=== PATIENT | male | born 1950 | race Caucasian/White ===

== ENCOUNTER 2025-03-04 14:48 | Outpatient (AMB) | payer MEDICARE, SELFPAY ==
[2025-03-04 15:33] VITALS: BP 162/58; PULSE 106; TEMP 36.4; O2SAT 97; BMI 33.6
--- NOTE | 2025-03-04 15:33 | MHC.OFFWIV ---
Intake Vital Signs 03/04/25 15:33 Height 5 ft 4 in Weight 196 lb BMI 33.6 BP 162/58 H Blood Pressure Location Rt brachial Position Sitting Pulse 106 H Pulse Source Pulse Oximeter Temp 97.5 F Temp Source Oral Pulse Oximetry (%) 97 Oxygen Delivery Method Room Air Intake Visit Reasons: EP-rt leg rash itchy & swollen Intake Note: presents with ulcerated lesion on right posterior calf, painful with weight bearing, weeping. applying neosporin anti-itch cream, vaseline and neosporin OTC Allergies Sulfa (Sulfonamide Antibiotics) (SULFA (SULFONAMIDE ANTIBIOTICS)) Allergy (Unknown, Verified 03/04/25 15:38) RED RASH codeine (CODEINE) Adverse Reaction (Intermediate, Verified 03/04/25 15:38) VERY TIRED AND EXTREME MUSCLE WEAKNESS codeine Allergy (Unknown, Uncoded 03/04/25 15:38) Rash Do you need a note to return to daycare/school/sports/work: No HPI HPI Comments History of Present Illness Details History - The patient is a 74-year-old male presenting with a rash on the back of the leg and an open wound with signs of infection. - Rash: Developed a few days ago, potentially related to wearing new socks without washing. - Open wound: Occurred two weeks ago from trauma while getting out of bed, now showing signs of infection with erythema and exudate. - Current management: Caregiver applies antibiotic cream, but infection persists, necessitating oral antibiotics and prescription cream. - He denies fever or chills. - He has been putting OTC cream on the area with little relief. Physical Exam General: Cooperative, healthy appearing, comfortable, no acute distress and well developed Orientation: Patient oriented x3 Neck: Normal visual inspection and Yes full ROM Respiratory: Normal respiratory effort and able to speak in complete sentences. Clear to auscultation bilaterally. No w/r/r noted. Cardiovascular: RRR, no m/r/g noted. Normal S1 and S2 Skin: Large circular open area, moist and erythematous on the posterior right lower leg. Erythema and swelling noted on the right lower leg. MSK: No calf tenderness noted. Strength is 5/5 on the LE. Ambulates with walker. Patient was informed and verbally consented to the use of an ambient scribe for clinic note documentation during this visit Review of Systems Const All systems reviewed & are unremarkable except as noted in HPI and below Physical Exam Vital Signs: Last Vital Signs Temp 97.5 F 03/04/25 15:33 Pulse 106 H 03/04/25 15:33 BP 162/58 H 03/04/25 15:33 Pulse Ox 97 03/04/25 15:33 Oxygen Delivery Method Room Air 03/04/25 15:33 BMI result Body Mass Index 33.6 Assessment & Plan Assessment & Plan (1) Wound of right lower extremity: Code(s): S81.801A - Unspecified open wound, right lower leg, initial encounter Qualifiers: Encounter type: initial encounter Qualified Code(s): S81.801A - Unspecified open wound, right lower leg, initial encounter Plan Most likely open wound with cellulitis Plan - Elevate the leg - Tylenol or motrin as needed for pain or fever - Initiate oral antibiotics and apply prescription antibiotic cream. - Ensure daily wound monitoring by caregiver and proper dressing to prevent further irritation. - Note given with instructions for the director of career resources. Coding Level of Care Code Est Pt Level 4 (85138) Diagnoses Wound of right lower extremity, initial encounter S81.801A Encounter type: initial encounter
== END 2025-03-04 16:51 | disposition home or self-care (01) ==
PROVIDERS: PCP Internal Medicine; Visit Provider Physician Assistant Medical
DX: S81.801A Unspecified open wound, right lower leg, initial encounter (principal)

== ENCOUNTER → 2025-03-04 14:48 | Outpatient (BNVA) | payer MEDICARE, SELFPAY | PROVIDERS: PCP Internal Medicine; Visit Provider Physician Assistant Medical | DX: S81.801A Unspecified open wound, right lower leg, initial encounter (principal); R21 Rash and other nonspecific skin eruption; X58.XXXA Exposure to other specified factors, initial encounter; Y93.9 Activity, unspecified; Y92.9 Unspecified place or not applicable; Y99.9 Unspecified external cause status | CPT/HCPCS: 99212 ==

== ENCOUNTER 2025-03-11 13:02 | Outpatient (AMB) | payer MEDICARE, SELFPAY ==
--- NOTE | 2025-03-11 13:02 | MHC.PC.OV ---
Vital Signs 03/11/25 13:07 Height 5 ft 4 in Weight 140 lb BMI 24.0 BP 138/40 L Blood Pressure Location Rt brachial Position Sitting Respiration 17 Pulse 95 Pulse Source Pulse Oximeter Temp 97.7 F Temp Source Temporal Artery Scan Pulse Oximetry (%) 95 Oxygen Delivery Method Room Air Intake Visit Reasons: Leg wound Cancer Registry Manager Required: No Accompanied by: Brother Allergies Sulfa (Sulfonamide Antibiotics) (SULFA (SULFONAMIDE ANTIBIOTICS)) Allergy (Unknown, Verified 03/11/25 13:02) RED RASH codeine (CODEINE) Adverse Reaction (Intermediate, Verified 03/11/25 13:02) VERY TIRED AND EXTREME MUSCLE WEAKNESS codeine Allergy (Unknown, Uncoded 03/04/25 15:38) Rash Tobacco use date assessed: 03/11/25 HPI Leg wound HPI Details came to the office with brother. buised the skin by scraping on the bed stand. Was seen in the walk in and prescribed antibiotics. PFSH Social History Patient Tobacco Use Status: Never used Tobacco e-Cigarette/Vaping Use: Never Used Questionnaire AUDIT C Alcohol Use Questionnaire (AUDIT-C) 1. How often do you have a drink containing alcohol?: Monthly or less 2. How many drinks containing alcohol do you have on a typical day when you are drinking?: 1 or 2 Total Score: 1 Physical exam (Primary Care) Vital Signs: Last Vital Signs Temp 97.7 F 03/11/25 13:07 Pulse 95 03/11/25 13:07 Resp 17 03/11/25 13:07 BP 138/40 L 03/11/25 13:07 Pulse Ox 95 03/11/25 13:07 Oxygen Delivery Method Room Air 03/11/25 13:07 BMI result Body Mass Index 24.0 Tobacco/Smoking Status: Tobacco use Status Tobacco use date assessed 03/11/25 03/11/25 13:11 Patient Tobacco Use Status Never used Tobacco 03/11/25 13:11 e-Cigarette/Vaping Use Never Used 03/11/25 13:11 Const General: cooperative and healthy appearing Nutritional Appearance: well nourished Orientation/consciousness: patient oriented x3 Limitations: no limitations HENMT Head: Yes normal to inspection Eyes General: appearance normal, both eyes and all related structures Neck Neck: Yes normal visual inspection Chest Chest palpation & inspection: normal palpation of entire chest wall Resp Effort & Inspection: normal respiratory effort Skin Other: Right leg; Tendocalcaneus area; open 4 cm superficial wound, pink granulation tissue. No surrounding erythema. Neuro General: patient oriented x3 Coding Level of Care Code New Pt Level 4 (23527) Complex EM visit Add On G2211 Diagnoses Wound of right leg S81.801A Assessment & Plan Assessment & Plan (1) Wound of right leg: Code(s): S81.801A - Unspecified open wound, right lower leg, initial encounter Plan: Continue and complete antibiotic course. Keep leg dry. Wound is healing well. Follow up appt in one month Orders: [facility]errals [facility] Referral S81.801A - Unspecified open wound, right lower leg, initial encounter
[2025-03-11 13:07] VITALS: BP 138/40; PULSE 95; RESP 17; TEMP 36.5; O2SAT 95; BMI 24.0
== END 2025-03-11 13:33 | disposition home or self-care (01) ==
LOC: HO.HMCHD 13:02
PROVIDERS: PCP Internal Medicine; Visit Provider Internal Medicine
DX: S81.801A Unspecified open wound, right lower leg, initial encounter (principal)

== ENCOUNTER → 2025-03-11 13:02 | Outpatient (BNVA) | payer MEDICARE, SELFPAY | PROVIDERS: PCP Internal Medicine; Visit Provider Internal Medicine | DX: S81.801A Unspecified open wound, right lower leg, initial encounter (principal); X58.XXXA Exposure to other specified factors, initial encounter; Y93.9 Activity, unspecified; Y92.9 Unspecified place or not applicable; Y99.9 Unspecified external cause status | CPT/HCPCS: 99202 ==

== ENCOUNTER 2025-04-01 10:49 | Outpatient (REF) | payer MEDICARE, SELFPAY ==
[2025-04-01 10:56] VITALS: BP 194/81; PULSE 83; RESP 16; O2SAT 94; BMI 24.9
== END 2025-04-01 10:50 | disposition home or self-care (01) ==
LOC: HO.MS 10:49
PROVIDERS: PCP Internal Medicine; Visit Provider Ophthalmology
PROC: (CPT 66821; principal; 2025-04-01 13:30)
DX: H26.491 Other secondary cataract, right eye (principal)
CPT/HCPCS: 66821

== ENCOUNTER 2025-04-11 08:39 | Outpatient (AMB) | payer MEDICARE, SELFPAY ==
--- NOTE | 2025-04-11 08:42 | MHC.PC.OV ---
Vital Signs 04/11/25 08:47 04/11/25 08:49 Height 5 ft 4 in Weight 194 lb BP 188/90 H 188/78 H Blood Pressure Location Lt brachial Rt brachial Position Sitting Sitting Respiration 22 H Pulse 86 Pulse Source Pulse Oximeter Temp 97.4 F Temp Source Temporal Artery Scan Pulse Oximetry (%) 96 Oxygen Delivery Method Room Air Intake Visit Reasons: 1 month wound f/u Policyholder Information Clerk Required: No Accompanied by: Self / Same As Patient Allergies Sulfa (Sulfonamide Antibiotics) (SULFA (SULFONAMIDE ANTIBIOTICS)) Allergy (Unknown, Verified 04/11/25 08:42) RED RASH codeine (CODEINE) Adverse Reaction (Intermediate, Verified 04/11/25 08:42) VERY TIRED AND EXTREME MUSCLE WEAKNESS codeine Allergy (Unknown, Uncoded 03/04/25 15:38) Rash Tobacco use date assessed: 03/11/25 HPI HPI Comments History of Present Illness Details The patient is a 74-year-old male presenting with concerns about his leg wound and management of essential hypertension. The leg wound, located on the backside of his leg, was reportedly caused by a scrape on the bed frame. The patient notes that the wound has been improving significantly, without signs of drainage, although there was a prior concern about circulation in the legs which could potentially impair healing. The wound has been managed with topical ointment and dressing changes every other day, though the patient did not receive a planned visit from a wound care nurse. Given his history of uncooperative behavior concerning his health, his brother David has stepped in to help manage his care and ensure he receives appropriate medical attention. Additionally, the patient reports a history of spontaneous and significant weight fluctuation, with weights recorded as 196 pounds two months ago, 145 pounds a month ago, and back up to 196 pounds ten days ago. The fluctuations are notable, and today, he weighs 194 pounds. The patient has essential hypertension, with a documented reading of 190/78, which was previously noted to be as high as 192/84 during a recent ophthalmology appointment. Previous concerns from his foot care nurse regarding circulation in his legs were noted, as well as a risk of skin breakdown if the patient injures himself. The patient has a history of vision problems and recently underwent laser surgery which has reportedly improved his vision significantly. 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 He also exhibits shortness of breath described as occurring particularly upon waking and sometimes after walking short distances. Although he denies a history of smoking and has limited alcohol intake, there are indications of diminished activity and health maintenance protocols needing attention, particularly concerning weight management and dietary sodium intake. 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 - Potential peripheral vascular disease (pending diagnostic evaluation) Surgical History: - Laser eye surgery Family History: - History of sinus issues (exact family members not specified) Social: - Lives alone in a congregate house in [place] - Brother is involved in care supervision - Walks with the aid of a walker - Diet includes meals delivered by a meal delivery company; frequent consumptions of banana bread and hamburgers; requires adjustment for better health management [facility] Medical History (Updated 04/11/25 @ 09:23 by Holland Leavitt MD) Hypertension Debility, unspecified Wound of lower extremity Healthcare maintenance Social History Patient Tobacco Use Status: Never used Tobacco e-Cigarette/Vaping Use: Never Used Questionnaire AUDIT C Alcohol Use Questionnaire (AUDIT-C) 1. How often do you have a drink containing alcohol?: Never 3. How often do you have six or more drinks on one occasion?: Never Total Score: 0 Review of Systems Const Details: - Constitutional: Denies chest pain and reports shortness of breath on exertion. - Cardiovascular: Reports essential hypertension; denies history of smoking. - Respiratory: Denies history of smoking; reports occasional shortness of breath upon waking and exertion. - Vision: Reports improvement in vision post-laser surgery. - Gastrointestinal: Reports regular bowel movements. - Integumentary: Reports existing leg wound with improved healing; denies new drainage. - Musculoskeletal: Reports unstable gait requiring walker; history of spine curvature. All systems reviewed & are unremarkable except as noted in HPI and below Physical exam (Primary Care) Vital Signs: Last Vital Signs Temp 97.4 F 04/11/25 08:49 Pulse 86 04/11/25 08:49 Resp 22 H 04/11/25 08:49 BP 188/78 H 04/11/25 08:49 Pulse Ox 96 04/11/25 08:49 Oxygen Delivery Method Room Air 04/11/25 08:49 Tobacco/Smoking Status: Tobacco use Status Tobacco use date assessed 03/11/25 04/11/25 08:45 Patient Tobacco Use Status Never used Tobacco 04/11/25 08:45 e-Cigarette/Vaping Use Never Used 04/11/25 08:45 Const Other: General: +Alert and oriented, Well nourished, No acute distress. Eye: Pupils are equal, round and reactive to light, Intact accommodation, Extraocular movements are intact, Normal conjunctiva, Vision improved after recent laser surgery. HENT: Normocephalic, Atraumatic, Tympanic membranes are clear, Normal hearing, Oral mucosa is moist, No pharyngeal erythema, Ear canals patent. Respiratory: Lungs CTA bilaterally, Wheezing noted, Respirations are non-labored. Cardiovascular: Regular rate, Regular rhythm, S1 auscultated, S2 auscultated, No murmur, Pulses difficult to appreciate, Normal peripheral perfusion, No edema. Gastrointestinal: Soft, Non-tender, Non-distended, Normal bowel sounds, No organomegaly, Abdomen slightly distended. Musculoskeletal: Normal range of motion, Normal strength, No tenderness, No swelling, No deformity, Normal gait, Uses a walker due to instability. Integumentary: Warm, Dry, [place], Intact, Wound on the back of the leg, draining, skin very dry. Neurologic: Alert, Oriented, Normal sensory, Normal motor function, No focal defects, Cranial Nerves II-XII are grossly intact, Normal deep tendon reflexes. Psychiatric: Cooperative, Appropriate mood & affect, Normal judgment. Coding Level of Care Code Est Pt Level 4 (31448) Complex EM visit Add On G2211 Diagnoses Healthcare maintenance Z00.00 Wound of lower extremity S81.809A Debility, unspecified R53.81 Hypertension, unspecified type I10 Hypertension type: unspecified Assessment & Plan Assessment & Plan (1) Healthcare maintenance: Code(s): Z00.00 - Encounter for general adult medical examination without abnormal findings Category: Medical (2) Wound of lower extremity: Comment: - Continue current wound care with topical ointment and dressings. - Refer to rn wound care to evaluate circulation and healing. - Evaluate for any signs of infection or compromised healing during follow-ups - Doppler ordered to evaluate for blood flow - On exam wound appears clean, without any drainiage. Code(s): S81.809A - Unspecified open wound, unspecified lower leg, initial encounter Category: Medical (3) Debility, unspecified: Comment: - PT & OT Ordered to improve mobility and reduce dependency on a walker. - Continue orthopedic consultations as needed in the future Code(s): R53.81 - Other malaise Category: Medical (4) Hypertension: Comment: - Initiate Amlodipine 2.5 mg once daily to manage hypertension effectively. - Advise diet modification to reduce sodium intake, aiming for less than 1.5 grams per day. - Monitor blood pressure daily using home BP cuff and document readings for evaluation at the next visit. Code(s): I10 - Essential (primary) hypertension Category: Medical Qualifiers: Hypertension type: unspecified Qualified Code(s): I10 - Essential (primary) hypertension Plan During this visit, we focused on managing the patient's essential hypertension, monitoring weight fluctuation, and addressing concerns regarding the leg wound. I discussed initiating Amlodipine 2.5 mg daily to manage the elevated blood pressure, emphasizing the importance of monitoring blood pressure readings at home. Reducing dietary sodium intake to less than 1.5 grams per day was recommended to aid in blood pressure control. I stressed the need for appropriate wound care and follow-up with a rn wound care, given his history of difficulty in healing. We agreed on a duplex scan to evaluate blood flow in the lower extremities, considering the potential circulation issues. Additionally, I recommended physical therapy to assess and improve gait stability. Follow-up was scheduled for wound care and hypertension management, with a review of blood pressure logs. The potential risk of progression to a more dependent care setting if self-care habits do not improve was discussed. Orders: Orders Hemoglobin A1c Today Z00.00 - Encounter for general adult medical examination without abnormal findings HIV Ab/Ag Today Z00.00 - Encounter for general adult medical examination without abnormal findings PT Evaluation and Treatment Today R53.81 - Other malaise OT Evaluation and Treatment Today R53.81 - Other malaise Complete Blood Count Auto Diff Today Z00.00 - Encounter for general adult medical examination without abnormal findings Comprehensive Met. Panel Today Z00.00 - Encounter for general adult medical examination without abnormal findings Hepatitis A,B,C Profile Today Z00.00 - Encounter for general adult medical examination without abnormal findings Lipid Panel Today Z00.00 - Encounter for general adult medical examination without abnormal findings TSH reflex Free T4 Today Z00.00 - Encounter for general adult medical examination without abnormal findings Syphilis Screen Today Z00.00 - Encounter for general adult medical examination without abnormal findings Vitamin D 25-OH Total Today Z00.00 - Encounter for general adult medical examination without abnormal findings US duplex arterial venous comp Today S81.809A - Unspecified open wound, unspecified lower leg, initial encounter Referrals Wound Care Referral S81.806H - Unspecified open wound, unspecified lower leg, initial encounter Medications: New amlodipine 2.5 mg PO DAILY 30 tabs 0RF 30 days Patient Instructions: - Start taking Amlodipine 2.5 mg once daily. - Buy a blood pressure cuff and check your blood pressure each morning; write down the numbers. - Cut down salt; aim for less than 1.5 grams a day. - Continue caring for your leg wound; use ointment and change dressings as discussed. - Let the wound breathe whenever possible. - Get more active and try small exercises like walking down the hallway. - Avoid foods with high sodium; try to eat healthier meals. - Follow up as planned for your leg wound and blood pressure.
[2025-04-11 08:47] VITALS: BP 188/90
[2025-04-11 08:49] VITALS: BP 188/78; PULSE 86; RESP 22; TEMP 36.3; O2SAT 96
== END 2025-04-11 09:28 | disposition home or self-care (01) ==
LOC: HO.HMCHD 08:39
PROVIDERS: PCP Student in an Organized Health Care Education/Training Program; Visit Provider Student in an Organized Health Care Education/Training Program
DX: Z00.00 Encounter for general adult medical examination without abnormal findings (principal); S81.809A Unspecified open wound, unspecified lower leg, initial encounter; R53.81 Other malaise; I10 Essential (primary) hypertension

== ENCOUNTER 2025-04-11 08:39 | Outpatient (REF) | payer MEDICARE, SELFPAY ==
[2025-04-11 09:55] LABS: MANUAL DIFF FLAG NO
[2025-04-11 10:44] LABS: Hematocrit 44.8 % (42.0-52.0); Hemoglobin 14.3 g/dl (14.0-18.0); Imm Gran Abs Auto 0.13 X10*3/uL (0.00-0.03); Imm Gran Pct Auto 1.7 % (0.0-0.4); Lymphocytes Absolute Auto 2.0 X10*3/uL (1.2-4.9); Mean Corpuscular HGB Conc 31.9 g/dl (31.0-36.0); Mean Corpuscular Hemoglobin 28.8 pg (27.0-33.0); Mean Corpuscular Volume 90.3 fL (80.0-98.0); NRBC Abs Auto 0.000 X10*3/uL (0.0-0.012); NRBC Pct Auto 0.0 /100WBC (0.0-0.2); Platelet Count 200 X10*3/uL (160-400); Red Blood Count 4.96 X10*6/uL (4.60-5.80); White Blood Count 7.8 X10*3/uL (4.8-10.8)
[2025-04-11 11:15] LABS: Alanine Aminotransferase 34 U/L (0-40); Albumin Level 4.5 g/dL (3.5-5.0); Alkaline Phosphatase 74 U/L (39-117); Anion Gap 12 (12-20); Aspartate Amino Transferase 41 U/L (5-37); Blood Urea Nitrogen 16 mg/dL (9-16); Calcium 9.6 mg/dL (8.4-10.2); Carbon Dioxide 25 mmol/L (22-29); Chloride 103 mmol/L (96-108); Cholesterol 254 mg/dL (<200); Estimated Glomerular Filt Rate > 60; HDL Cholesterol 45 mg/dL (>40); Potassium 4.1 mmol/L (3.3-5.1); Sodium 136 mmol/L (135-145); Total Protein 8.1 g/dL (6.5-8.0); Triglycerides 230 mg/dL (<150)
[2025-04-11 11:22] LABS: HBS Num1 0.00 mIU/mL (0-7.99); HBc Num1 0.05 S/CO (0.00-0.79); HBsAGNum1 0.34 S/CO (0.00-0.99); HIV Num 1 0.11 S/CO (0.00-0.99); Hepatitis A Antibody IgM 0.17 Index (0-0.79); Hepatitis B Surface Antigen Negative (Negative); ~HepC Num1 0.12 S/CO (0.00-0.79); ~Hepatitis A Antibody IgM Nonreactive (Nonreactive); ~Hepatitis B Surface Antibody NONREACTIVE (Nonreactive); ~Hepatitis C Antibody Nonreactive (Nonreactive)
[2025-04-11 11:24] LABS: Syphilis Screen Nonreactive (Nonreactive)
[2025-04-11 11:57] LABS: Free T4 (Free Thyroxine) 0.49 ng/dL (0.71-1.85)
== END 2025-04-11 08:40 | disposition home or self-care (01) ==
LOC: HO.LAB 08:39
PROVIDERS: PCP Internal Medicine; Visit Provider Student in an Organized Health Care Education/Training Program
DX: Z00.00 Encounter for general adult medical examination without abnormal findings (principal); S81.809A Unspecified open wound, unspecified lower leg, initial encounter; R53.81 Other malaise; I10 Essential (primary) hypertension
CPT/HCPCS: 36415; 80053; 80061; 82306; 83036; 84439; 84443; 85025; 86704; 86706; 86709; 86780; 86803; 87340; 87389; 99212

== ENCOUNTER 2025-04-23 08:58 | Outpatient (RCR) | payer MEDICARE, SELFPAY | END 2025-04-23 16:29 | disposition home or self-care (01) | LOC: HO.WCC 08:58 | PROVIDERS: PCP Internal Medicine; Visit Provider Surgery Surgical Oncology | DX: I87.2 Venous insufficiency (chronic) (peripheral) (principal); I73.9 Peripheral vascular disease, unspecified; I10 Essential (primary) hypertension | CPT/HCPCS: 99203 ==

== ENCOUNTER 2025-05-03 09:14 | Outpatient (AMB) | payer MEDICARE, SELFPAY ==
--- NOTE | 2025-05-03 09:01 | A.OFFPC_ITS ---
Vital Signs 05/03/25 09:23 Height 5 ft 4 in Weight 195 lb BMI 33.5 BP 185/77 H Blood Pressure Location Lt brachial Position Sitting Respiration 18 Pulse 82 Pulse Source Pulse Oximeter Temp 98.8 F Temp Source Temporal Artery Scan Pulse Oximetry (%) 92 Oxygen Delivery Method Room Air Intake Visit Reasons: Annual Cook Jelly Required: No Accompanied by: Brother Allergies Sulfa (Sulfonamide Antibiotics) (SULFA (SULFONAMIDE ANTIBIOTICS)) Allergy (Unknown, Verified 05/03/25 09:01) RED RASH codeine (CODEINE) Adverse Reaction (Intermediate, Verified 05/03/25 09:01) VERY TIRED AND EXTREME MUSCLE WEAKNESS codeine Allergy (Unknown, Uncoded 03/04/25 15:38) Rash Medication List - Last Reconciled 05/03/25 by Holland Leavitt MD amlodipine 10 mg PO DAILY atorvastatin (Lipitor) 40 mg PO BEDTIME 90 days cholecalciferol (vitamin D3) 1,250 mcg PO QWEEK 12 weeks ibuprofen (Advil) 200 mg PO BID PRN levothyroxine (Synthroid) 50 mcg PO DAILY multivitamin 1 tab PO DAILY mupirocin 2% 1 appl topical TID 10 days Tobacco use date assessed: 03/11/25 HPI HPI Comments History of Present Illness Details The patient is a 74-year-old male presenting for management of hypertension and review of recent test results. The patient has a history of essential hypertension, which remains uncontrolled. His blood pressure readings have been spotty, with a recent reading of 180 mmHg, indicating poor control despite attempts at monitoring and medication adherence. The patient has been noncompliant with his antihypertensive medication regimens, which has contributed to persistently elevated readings. In addition to hypertension, the patient presents with elevated cholesterol levels, suggestive of hyperlipidemia. This was identified in previous test results, prompting consideration for initiation of cholesterol-lowering medication. The patient also has hypothyroidism with significantly low thyroid function tests noted recently. Noncompliance with prescribed thyroid medication has been contributing to symptoms such as fatigue. Moreover, the patient is identified as having a vitamin D deficiency, likely due to limited sunlight exposure as he prefers to remain indoors watching television. He is reported to be borderline diabetic per recent evaluations, and while medications were not immediately initiated, dietary modifications were recommended to address his glucose levels in conjunction with potential benefits for hyperlipidemia management. Medical History: - Essential Hypertension - Hyperlipidemia - Hypothyroidism - Vitamin D Deficiency - Borderline Diabetes Mellitus Surgical History: - No surgical history mentioned. Medications: - Amlodipine 2.5 mg, for hypertension (n ote: a switch to a higher dose is planned) - Thyroid medications, for hypothyroidis m (specific medication name/dose not provided) Family History: - History of thyroid dysfunction in the family (patient's mother had an overreactive thyroid) Diagnostic Results: - Labs: Low thyroid function test levels , elevated cholesterol levels, low vitamin D levels - Tests and Diagnostics: Recent blood pr essure readings showing uncontrolled hypertension (180 mmHg) Social: - Prefers minimal physical activity, oft en remains indoors watching television - Has limited exposure to sunlight - Nutritional intake includes meals deli jayme with diabetic consideration [facility] Medical History (Updated 05/03/25 @ 09:54 by Holland Leavitt MD) Diabetes Vitamin D deficiency Hyperlipidemia Hypothyroidism Hand weakness Gait disturbance Shoulder weakness Lower extremity weakness Hypertension Debility, unspecified Wound of lower extremity Healthcare maintenance Social History Patient Tobacco Use Status: Never used Tobacco e-Cigarette/Vaping Use: Never Used Review of Systems Const Details: - Cardiovascular: Reports elevated blood pressure - Endocrine: Reports feeling tired, attributed to hypothyroidism. Denies smoking history. - Musculoskeletal: Denies physical activity All systems reviewed & are unremarkable except as reviewed in HPI and above Physical exam (Primary Care) Vital Signs: Last Vital Signs Temp 98.8 F 05/03/25 09:23 Pulse 82 05/03/25 09:23 Resp 18 05/03/25 09:23 BP 185/77 H 05/03/25 09:23 Pulse Ox 92 05/03/25 09:23 Oxygen Delivery Method Room Air 05/03/25 09:23 BMI result Body Mass Index 33.5 Tobacco/Smoking Status: Tobacco use Status Tobacco use date assessed 03/11/25 05/03/25 09:02 Patient Tobacco Use Status Never used Tobacco 05/03/25 09:02 e-Cigarette/Vaping Use Never Used 05/03/25 09:02 Const Other: General: +Alert and oriented, Well nourished, No acute distress. Eye: Pupils are equal, round and reactive to light, Intact accommodation, Extraocular movements are intact, Normal conjunctiva, Vision unchanged. HENT: Normocephalic, Atraumatic, Tympanic membranes are clear, Normal hearing, Oral mucosa is moist, No pharyngeal erythema, Ear canals patent. Respiratory: Lungs CTA bilaterally, No wheeze, Respirations are non-labored. Cardiovascular: Regular rate, Regular rhythm, S1 auscultated, S2 auscultated, No murmur, Good pulses equal in all extremities, Normal peripheral perfusion, No edema. Gastrointestinal: Soft, Non-tender, Non-distended, Normal bowel sounds, No organomegaly. Musculoskeletal: Normal range of motion, Normal strength, No tenderness, No swelling, No deformity, Normal gait. Integumentary: Warm, Dry, [place], Intact, Healing wounds noted on the leg, advised to let them dry out completely. Neurologic: Alert, Oriented, Normal sensory, Normal motor function, No focal defects, Cranial Nerves II-XII are grossly intact, Normal deep tendon reflexes. Psychiatric: Cooperative, Appropriate mood & affect, Normal judgment, Capacity to make decisions intact. Coding Level of Care Code Est Pt Level 4 (07728) Complex EM visit Add On G2211 Diagnoses Hypothyroidism, unspecified type E03.9 Hypothyroidism type: unspecified Hypertension, unspecified type I10 Hypertension type: unspecified Hyperlipidemia, unspecified hyperlipidemia type E78.5 Hyperlipidemia type: unspecified Debility, unspecified R53.81 Wound of right lower extremity, subsequent encounter S81.801D Encounter type: subsequent encounter Laterality: right Vitamin D deficiency E55.9 Type 2 diabetes mellitus without complication, without long-term current use of insulin E11.9 Diabetes mellitus type: type 2 Diabetes mellitus local intermodal truck driver insulin use: without local intermodal truck driver use Diabetes mellitus complication status: without complication Assessment & Plan Assessment & Plan (1) Hypothyroidism: Comment: - Patient adherence to thyroid medication is vital, unclear if acting taking Levothyroxine - A referral to an pest controller assistant is to be sent due to significantly low thyroid function and noncompliance with medication. Code(s): E03.9 - Hypothyroidism, unspecified Category: Medical Qualifiers: Hypothyroidism type: unspecified Qualified Code(s): E03.9 - Hypothyroidism, unspecified (2) Hypertension: Comment: - The plan is to increase the amlodipine dose from 2.5 mg to 10 mg daily for better blood pressure control. - It was emphasized that the patient must adhere to his antihypertensive treatment regimen to achieve optimal outcomes. - Follow up in 1 month to re-evaluate blood pressures and consider addition of SHALA/ARB Code(s): I10 - Essential (primary) hypertension Category: Medical Qualifiers: Hypertension type: unspecified Qualified Code(s): I10 - Essential (primary) hypertension (3) Hyperlipidemia: Comment: - Initiation of cholesterol-lowering medication is planned. (Atorvastatin 40mg Daily) - Dietary modification is advised to help control cholesterol levels, leveraging meals designed for diabetic needs. Code(s): E78.5 - Hyperlipidemia, unspecified Category: Medical Qualifiers: Hyperlipidemia type: unspecified Qualified Code(s): E78.5 - Hyperlipidemia, unspecified (4) Debility, unspecified: Comment: - PT & OT Ordered to improve mobility and reduce dependency on a walker. He has had some improvement today and able to walk without an however is interested in home PT. Requested information for a home PT services they would like and we will send a referral to the same - Continue orthopedic consultations as needed in the future Code(s): R53.81 - Other malaise Category: Medical (5) Wound of lower extremity: Comment: - Continue current wound care with topical ointment and dressings. - Evaluate for any signs of infection or compromised healing during follow-ups - On exam wound appears clean, without any drainiage and scabbing over wound Code(s): S81.809A - Unspecified open wound, unspecified lower leg, initial encounter Category: Medical Qualifiers: Encounter type: subsequent encounter Laterality: right Qualified Code(s): S81.801D - Unspecified open wound, right lower leg, subsequent encounter (6) Vitamin D deficiency: Comment: - Initiate vitamin D supplementation: one capsule weekly for 12 weeks Code(s): E55.9 - Vitamin D deficiency, unspecified Category: Medical (7) Diabetes: Comment: - Advise dietary interventions to manage glucose levels given A1c level of 6.4 - If he has continued increase will Code(s): E11.9 - Type 2 diabetes mellitus without complications Category: Medical Qualifiers: Diabetes mellitus type: type 2 Diabetes mellitus local intermodal truck driver insulin use: without local intermodal truck driver use Diabetes mellitus complication status: without complication Qualified Code(s): E11.9 - Type 2 diabetes mellitus without complications Plan: Health maintenance: - Encourage healthy lifestyle changes, including dietary modifications for diabetic management and cholesterol control - Plan for a colonoscopy, pending blood pressure control, given the absence from records and need for cancer screening Patient was informed and verbally consented to the use of an ambient scribe for clinic note documentation during this visit. Plan I discussed with the patient and his family the planned increase in amlodipine dosage to better manage his hypertension. I explained that adherence to his medication regimen is critical for optimizing blood pressure control. We reviewed the need to start cholesterol-lowering therapy due to elevated chato sterol levels and emphasized dietary modifications as an initial step for managing borderline diabetes and hyperlipidemia. I mentioned the importance of vitamin D supplementation due to deficiency and supported adherence to thyroid medication for hypothyroidism control. We also talked about the plan for a referral to an pest controller assistant due to his low thyroid function. Additionally, we projected a future colonoscopy, contingent on achieving controlled blood pressure, as part of cancer screening. Follow-up is planned via telehealth in a month to monitor blood pressure, aiming for consistency without having him travel. Orders: Referrals Open Access Screening Colonoscopy Referral Z12.11 - Encounter for screening for malignant neoplasm of colon Endocrinology Referral E03.9 - Hypothyroidism, unspecified Medications: New amlodipine 10 mg PO DAILY 30 tabs 0RF atorvastatin (Lipitor) 40 mg PO BEDTIME 90 tabs 3RF 90 days cholecalciferol (vitamin D3) 1,250 mcg PO QWEEK 12 caps 0RF 12 weeks Discontinued doxycycline hyclate Discontinued Reason: Doctor's Order 100 mg PO BID 10 days 20 tabs 0RF amlodipine Discontinued Reason: Doctor's Order 2.5 mg PO DAILY 30 days 30 tabs 0RF Patient Instructions: - Take the new prescribed dose of amlodipine daily as directed - Follow the dietary recommendations for managing cholesterol and glucose levels - Ensure you take vitamin D supplements once a week for 12 weeks - Stick to the prescribed thyroid medication daily as instructed - Prepare for dietary adjustments to manage glucose levels - Call us to schedule a telehealth follow-up in a month regarding your blood pressure - Watch for any lightheadedness after starting new medications and report if it occurs
[2025-05-03 09:23] VITALS: BP 185/77; PULSE 82; RESP 18; TEMP 37.1; O2SAT 92; BMI 33.5
== END 2025-05-03 09:56 | disposition home or self-care (01) ==
LOC: HO.HMCHD 09:15
PROVIDERS: PCP Internal Medicine; Visit Provider Student in an Organized Health Care Education/Training Program
DX: E03.9 Hypothyroidism, unspecified (principal); I10 Essential (primary) hypertension; E78.5 Hyperlipidemia, unspecified; R53.81 Other malaise; S81.801D Unspecified open wound, right lower leg, subsequent encounter; E55.9 Vitamin D deficiency, unspecified; E11.9 Type 2 diabetes mellitus without complications

== ENCOUNTER → 2025-05-03 09:14 | Outpatient (BNVA) | payer MEDICARE, SELFPAY | PROVIDERS: PCP Internal Medicine; Visit Provider Student in an Organized Health Care Education/Training Program | DX: E03.9 Hypothyroidism, unspecified (principal); I10 Essential (primary) hypertension; E78.5 Hyperlipidemia, unspecified; R53.81 Other malaise; S81.801D Unspecified open wound, right lower leg, subsequent encounter; E55.9 Vitamin D deficiency, unspecified; E11.9 Type 2 diabetes mellitus without complications; Z79.899 Other long term (current) drug therapy | CPT/HCPCS: 99212 ==

== ENCOUNTER 2025-05-30 08:26 | Outpatient (AMB) | payer MEDICARE, SELFPAY ==
--- OUTSIDE RECORDS SUMMARY | 2025-05-24 05:30 | XMS_ITS ---
Author Organization [facility] Address [address] [place] [address] Care Team Providers Care Photography Spotter Name Role Phone DagmarHolland whitmore Primary Care Provider Lilia Schilling Unavailable [phone] Rajendra Lal Unavailable [phone] Allergies Allergen (clinical drug ingredient) Drug/Non Drug [...] Negative Encounters Encounter Location Date Provider Diagnosis [facility] [address] [place] [address] 05/24/2025 Rajendra Lal Plan Of Treatment Next Appt Details Provider Name:Lilia arzola, 10/24/2025 10:00:00 AM, [address] [place], [address], Progress Notes * Lauren POWER:[birth year] (74 yo M)Acc No.[id number]:05/24/2025 Progress Notes Patient: Clay SHERIFF Provider: Swathi Lal DPM :1950 A ge:74 Y S ex:Male Date:05/24/2025 Address:[address] [place] [address], [place], [facility] Pcp:Holland Leavitt Subjective: * Chief Complaints: * 1 . [...] enies. C ardiovascular: Pacemaker d enies. M MAINTENANCE DATA ANALYST d enies. W PW d enies. C [...] Swathi Lal DPM Date: Generated for Amanda Min/Deepa on: 08:44 AM EDT
--- NOTE | 2025-05-30 07:41 | MHC.PC.OV ---
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 The patient has a background of essential hypertension, hypothyroidism, vitamin D deficiency, and hypercholesterolemia. Despite having medications prescribed, there is a significant issue with adherence, as evidenced by full pill bottles and medications not being taken out from weekly pill holders. Historically, the patient's essential hypertension and hypercholesterolemia have been monitored, but recently there have been disruptions. An episode where the patient's blood pressure recorded was 187/74 mmHg post-ambulation during physical therapy suggests suboptimal control. Despite this, there is no record of the patient experiencing any acute symptoms associated with elevated blood pressure. Hypothyroidism remains untreated as the patient has not been taking the prescribed thyroid hormone replacement. The concern of thyroid imbalance persists, with implications for metabolic control, energy levels, and overall health. The patient's vitamin D deficiency, confirmed by past tests, has not been addressed due to noncompliance with prescribed supplements. Noncompliance is a longstanding issue, exacerbated by limited mobility and motivation to follow medical advice. The patient's diet is reportedly inadequate despite meals being provided by services like Meals on Wheels, and there has been no initiative to improve dietary intake independently. Medical History: - Essential Hypertension - Hypothyroidism - Vitamin D deficiency - Hypercholesterolemia - Noncompliance with medication regimen Medications: - Amlodipine 10 mg daily for hypertension - Atorvastatin for hypercholesterolemia - Thyroid hormone replacement (specific medication and dose not mentioned) for hypothyroidism - Vitamin D supplements for deficiency Family History: - Family history of noncompliance with a need for medical care - Recent loss of a spouse to ovarian cancer Social History: - Lives in an apartment complex with provided access to transportation - Limited mobility; recent relocation within the same building noted - Received Meals on Wheels, with unspecified compliance to dietary recommendations - Limited interaction with family, support mainly provided by a brother and arproe-[id number] [facility] Medical History (Updated 05/30/25 @ 09:05 by Holland Leavitt MD) Diabetes Vitamin D deficiency Hyperlipidemia Hypothyroidism Hand weakness Gait disturbance Shoulder weakness Lower extremity weakness Hypertension Debility, unspecified Wound of lower extremity Healthcare maintenance Social History Housing: House Patient Tobacco Use Status: Never used Tobacco e-Cigarette/Vaping Use: Never Used service: No Current occupational status: disabled Review of Systems Const Details: - Cardiovascular: Reports issues with blood pressure regulation - Endocrine: Reports noncompliance with thyroid medication - Musculoskeletal: Denies recent increase in physical activity - Dietary: Reports inadequate dietary intake despite meal service All systems reviewed & are unremarkable except as reviewed in HPI and above Physical exam (Primary Care) Vital Signs: Last Vital Signs Temp 97.3 F 05/30/25 08:30 Pulse 76 05/30/25 08:30 Resp 18 05/30/25 08:30 BP 146/56 H 05/30/25 08:30 Pulse Ox 95 05/30/25 08:30 Oxygen Delivery Method Room Air 05/30/25 08:30 Tobacco/Smoking Status: Tobacco use Status Tobacco use date assessed 03/11/25 05/30/25 07:42 Patient Tobacco Use Status Never used Tobacco 05/30/25 07:42 e-Cigarette/Vaping Use Never Used 05/30/25 07:42 Const Other: General: +Alert and oriented, Well nourished, No acute distress. Eye: Pupils are equal, round and reactive to light, Intact accommodation, Extraocular movements are intact, Normal conjunctiva, Vision unchanged. HENT: Normocephalic, Atraumatic, Tympanic membranes are clear, Normal hearing, Oral mucosa is moist, No pharyngeal erythema, Ear canals patent. Respiratory: Lungs CTA bilaterally, No wheeze, Respirations are non-labored. Cardiovascular: Regular rate, Regular rhythm, S1 auscultated, S2 auscultated, No murmur, Good pulses equal in all extremities, Normal peripheral perfusion, No edema. Gastrointestinal: Soft, Non-tender, Non-distended, Normal bowel sounds, No organomegaly. Musculoskeletal: Normal range of motion, Normal strength, No tenderness, No swelling, No deformity, Normal gait. Integumentary: Warm, Dry, [place], Intact. Neurologic: Alert, Oriented, Normal sensory, Normal motor function, No focal defects, Cranial Nerves II-XII are grossly intact, Normal deep tendon reflexes. Psychiatric: Cooperative, Appropriate mood & affect, Normal judgment. Coding Level of Care Code Est Pt Level 4 (16084) Complex EM visit Add On G2211 Diagnoses Hypertension, unspecified type I10 Hypertension type: unspecified Hyperlipidemia, unspecified hyperlipidemia type E78.5 Hyperlipidemia type: unspecified Hypothyroidism, unspecified type E03.9 Hypothyroidism type: unspecified Vitamin D deficiency E55.9 Type 2 diabetes mellitus without complication, without long-term current use of insulin E11.9 Diabetes mellitus type: type 2 Diabetes mellitus oil heaterman insulin use: without skilled nursing use Diabetes mellitus complication status: without complication Assessment & Plan Assessment & Plan (1) Hypertension: Comment: - Noncompliance with antihypertensive medication is a significant concern. - Encouragement to adhere to the prescribed Amlodipine regimen discussed. Code(s): I10 - Essential (primary) hypertension Category: Medical Qualifiers: Hypertension type: unspecified Qualified Code(s): I10 - Essential (primary) hypertension (2) Hyperlipidemia: Comment: - Importance of taking Atorvastatin highlighted to minimize cardiovascular risk factors. - Discussion included necessity of lifestyle modifications, specifically diet. Code(s): E78.5 - Hyperlipidemia, unspecified Category: Medical Qualifiers: Hyperlipidemia type: unspecified Qualified Code(s): E78.5 - Hyperlipidemia, unspecified (3) Hypothyroidism: Comment: - Significant issues due to lack of medication compliance. - Discussion on the potential consideration of thyroid hormone injection if oral compliance remains inadequate. - Emphasis on the importance of thyroid management to prevent further complications & importance of follow up with Endo. Code(s): E03.9 - Hypothyroidism, unspecified Category: Medical Qualifiers: Hypothyroidism type: unspecified Qualified Code(s): E03.9 - Hypothyroidism, unspecified (4) Vitamin D deficiency: Comment: - Initiate vitamin D supplementation: one capsule weekly for 12 weeks - Emphasized necessity to consistently take prescribed supplements to address deficiency. Code(s): E55.9 - Vitamin D deficiency, unspecified Category: Medical (5) Diabetes: Comment: - Advise dietary interventions to manage glucose levels given A1c level of 6.4 - If he has continued increase will Code(s): E11.9 - Type 2 diabetes mellitus without complications Category: Medical Qualifiers: Diabetes mellitus type: type 2 Diabetes mellitus oil heaterman insulin use: without oil heaterman use Diabetes mellitus complication status: without complication Qualified Code(s): E11.9 - Type 2 diabetes mellitus without complications Plan: Health Maintenance: - Discussion on dietary interventions and adherence to meal plans. - Reinforcement of the significance of medication compliance in risk management for chronic diseases like cardiovascular disease. Patient was informed and verbally consented to the use of an ambient scribe for clinic note documentation during this visit. Plan During today?s session with the patient, I thoroughly discussed the implications of noncompliance on his chronic conditions, particularly hypertension and hypothyroidism. I stressed the importance of taking medications as prescribed to mitigate the risk of complications such as cardiovascular events and metabolic imbalances due to thyroid dysfunction. Various strategies to improve adherence were deliberated upon, including involving family for daily reminders and aid. I underscored the role of lifestyle changes, especially dietary, in controlling cholesterol levels. Despite previous challenges, I recommended adhering to the upcoming appointments with specialists to ensure continued monitoring and possible adjustments in management approaches. Patient Instructions: - Take all medications as prescribed daily. - Make arrangements to attend all upcoming specialist appointments. - Engage in daily light physical activity as tolerated. - Continue receiving Meals on Wheels and attempt to follow nutrition guidance provided. - Monitor blood pressure regularly at home, if possible. - Have a family member assist with reminder systems for medication intake. - Follow-up appointment scheduled in 3 months. Return sooner if experiencing any new symptoms or health changes.
[2025-05-30 08:30] VITALS: BP 146/56; PULSE 76; RESP 18; TEMP 36.3; O2SAT 95
--- OUTSIDE RECORDS SUMMARY | 2025-05-30 08:45 | XMS_ITS | Patient Health Record ---
[facility] Organization [facility] Address [address] [facility] [place] [address] Care Team Providers Care Clinical Operations Leader Name Role Phone Holland Leavitt Primary Care Provider Lilia Schilling Unavailable [phone] Rajendra Lal Unavailable [phone] Allergies Allergen (clinical drug ingredient) Drug/Non Drug Allergy documented on EMR Reaction Allergy Type Onset Date Status codeine Codeine Unknown Drug Allergy Active Reason For Referral No Information Medications Medication SIG (Take, Route, Frequency, Duration) Notes Start Date End Date Status Levothyroxine Sodium 50 MCG TAKE 1 TABLET BY MOUTH EVERY DAY Oral; Duration: 30 Days Active prednisoLONE Acetate 1 % INSTILL 1 DROP IN SURGICAL EYE 4 TIMES A DAY X4 DAYS. BRING UNOPENED TO HOSPTIAL ON DAY OF PROCEDURE Ophthalmic; Duration: 20 Days Active Doxycycline Hyclate 100 MG 1 capsule Ora lly Once a day Active Advil 200 MG 1 tablet with food o r milk as needed Orally Three times a day Active amLODIPine Besylate 2.5 MG Oral; Duration: 30 Days Active Extra Depth Orthopedic Shoes (1 Pair) with Customized Heat Molded Multidensity Innersoles (3 Pair) Dx: NIDDM/Polyneuropathy (E11.42), Hammertoe Foot Deformity (M20.41,M20.42), Preulcerative Skin Lesion(s) (L85.1); Duration: 365 days 04/22/2025 Active Mupirocin 2 % External; Duration: 10 Days Active Doxycycline Hyclate 100 MG Oral; Duration: 10 Days Active Immunizations Vaccine Route Administration Date Status Comme nts Influenza Unknown 04/22/2025 Refused Social History Tobacco Use: Social History Observation [...] ast year? No Points 0 Interpretation Negative Problems Problem Type SNOMED Code ICD Code Onset Dates Problem Status W/U Status Risk Notes Problem Acquired hammer toe of right foot (7823204202138293) Other hammer toe(s) (acquired), right foot (M20.41) Active confirmed Problem Acquired hammer toe of left foot (7271593256923711) Other hammer toe(s) (acquired), left foot (M20.42) Active confirmed Problem Bilateral atherosclerosis of arteries of lower limbs (disorder) (74424011517422598 ) Atherosclerosis of artery of both lower extremities (I70.203) Active confirmed Q7(A), Q8(2B), Q9(1B,2 C) Vital Signs Blood pressure diastolic 81 mm Hg 04/22/2025 Height 5ft 4in in 04/22/2025 Blood pressure systolic 191 mm Hg 04/22/2025 Weight 194 lbs 04/22/2025 BMI 33.3 kg/m2 04/22/2025 Procedures Procedure Date Ordered Date Performed Result Body Sit e 09967-YIEXWON NAIL, 1-5 04/22/2025 N/A 00848-GJRI SKIN LESIONS, OVER 4 04/22/2025 N/A [id number]-NXNTPSHS DYSTROPHIC NAILS ANY # 04/22/2025 N/A Encounters Encounter Location Date Provider Diagnosis [facility] [address] [address] 04/22/2025 Lilia Mcduffie Other hammer toe(s) (acquired), right foot M20.41 ; Other hammer toe(s) (acquired), left foot M20.42 ; Atherosclerosis of artery of both lower extremities I70.203 ; Tinea unguium B35.1 ; Pain in right toe(s) M79.674 and Pain in left toe(s) M79.675 [facility] [address] [address] 04/22/2025 Lilia Mcduffie Assessments Encounter Date Diagnosis (ICD Code) Assessment Notes Treatment Notes Treatment Clinical Notes Section Notes 04/22/2025 Other hammer toe(s) (acquired), right foot (ICD-10 - M20.41) Patient Educated with: DIABETIC FOOT CARE INSTRUCTIONS. pdf (DIABETIC FOOT CARE INSTRUCTIONS. pdf) 04/22/2025 Other hammer toe(s) (acquired), left foot (ICD-10 - M20.42) 04/22/2025 Atherosclerosis of artery of both lower extremities (ICD-10 - I70.203) Q7(A), Q8(2B), Q9(1B,2C) 04/22/2025 Tinea unguium (ICD-10 - B35.1) 04/22/2025 Pain in right toe(s) (ICD-10 - M79.674) 04/22/2025 Pain in left toe(s) (ICD-10 - M79.675) Plan Of Treatment Pending Test Test Name Order Date [id number] NAIL, 1-5 04/22/2025 64879-OARW SKIN LESIONS, OVER 4 04/22/20 25 [id number]-UNTVJMDI DYSTROPHIC NAILS ANY # Next Appt Details Provider Name:Lilia Bhatti ness, 10/24/2025 10:00:00 AM, [address], [place], [address], Insurance Providers Payer Name Payer Address Payer Phone Subscriber Number Group Number Insured Name Patient Relationship to Insured Coverage Start Date Coverage End Date [employer] [place] [employer] [facility] [address] [place] [address] [phone] [id number] Clay Jennings Self - patient is the insured 2 Medical (General) History Medical History History ICD Code Anxiety Cataracts Measles Mumps Chicken pox
== END 2025-05-30 09:01 | disposition home or self-care (01) ==
LOC: HO.HMCHD 08:26
PROVIDERS: PCP Student in an Organized Health Care Education/Training Program; Visit Provider Student in an Organized Health Care Education/Training Program
DX: I10 Essential (primary) hypertension (principal); E78.5 Hyperlipidemia, unspecified; E03.9 Hypothyroidism, unspecified; E55.9 Vitamin D deficiency, unspecified; E11.9 Type 2 diabetes mellitus without complications

== ENCOUNTER → 2025-05-30 08:26 | Outpatient (BNVA) | payer MEDICARE, SELFPAY | PROVIDERS: PCP Student in an Organized Health Care Education/Training Program; Visit Provider Student in an Organized Health Care Education/Training Program | DX: I10 Essential (primary) hypertension (principal); E78.5 Hyperlipidemia, unspecified; E03.9 Hypothyroidism, unspecified; E55.9 Vitamin D deficiency, unspecified; E11.9 Type 2 diabetes mellitus without complications; Z91.148 Patient's other noncompliance with medication regimen for other reason | CPT/HCPCS: 99212 ==

== ENCOUNTER 2025-05-31 10:36 | Emergency (ER) | payer MEDICARE, SELFPAY ==
--- OUTSIDE RECORDS SUMMARY | 2025-05-24 05:30 | XMS_ITS ---
Author Organization [facility] Address [address] [place] [address] Care Team Providers Care Ultrasound Technologist Name Role Phone DagmarHolland whitmore Primary Care Provider Lilia Schilling Unavailable [phone] Rajendra Lal Unavailable [phone] Allergies Allergen (clinical drug ingredient) Drug/Non Drug [...] Negative Encounters Encounter Location Date Provider Diagnosis [facility] [address] [place] [address] 05/24/2025 Rajendra Lal Plan Of Treatment Next Appt Details Provider Name:Lilia arzola, 10/24/2025 10:00:00 AM, [address] [place], [address], Progress Notes * Lauren POWER:[birth year] (74 yo M)Acc No.[id number]:05/24/2025 Progress Notes Patient: Clay SHERIFF Provider: Swathi Lal DPM :1950 A ge:74 Y S ex:Male Date:05/24/2025 Address:[address] [place] [address], [place], [id number] Pcp:Holland Leavitt Subjective: * Chief Complaints: * [...] enies. C ardiovascular: Pacemaker d enies. M OUTSIDE SALES ACCOUNT MANAGER d enies. W PW d enies. [...] DPM Date: Generated for Amanda Min/Deepa on: 01:38 PM EDT
--- NOTE | ~2025-05-31 | XR_ITS ---
EXAMINATION: XR CHEST CLINICAL INFORMATION: HTN COMPARISON: February 26, 2013 is not available on PACS. TECHNIQUE: PA and lateral views FINDINGS: Poor inspiration. No consolidation, pleural effusion or pneumothorax. Cardiomediastinal silhouette demonstrates a prominent cardiac apex. There is a moderate to large volume hiatal hernia. There is a shaped curvature of the thoracolumbar spine. Osteopenia versus osteoporosis. Multilevel spondylosis. Degenerative changes in the acromioclavicular joints. XR/XR chest 2V IMPRESSION: No acute airspace disease. Concerning hypertensive cardiomyopathy in the correct clinical settings. Moderate to large volume hiatal hernia. Scoliosis and spondylosis, thoracolumbar spine. Electronically signed by: Maximino Ferraro MD 05/31/2025 11:31 AM EDT
--- NOTE | 2025-05-31 10:44 | ED_ITS ---
HPI - General Adult General Chief complaint: General Medical Stated complaint: HIGH BP PER [facility] STAFF Time Seen by Provider: 05/31/25 10:44 Source: patient and EMS Mode of arrival: EMS Limitations: no limitations History of Present Illness ED Provider: Dilia Gonzalez PA-C HPI narrative: Patient is a 74 year old assigned male at with a history of HLD, HTN, and DM presenting to the emergency department today with a high blood pressure reading. Patient states that his assisted living facility staff checked his blood pressure and it was high so they recommended he come to the ER for evaluation . Patient states that he has no complaints. No headache, blurry vision, loss of vision, chest pain, or shortness of breath. Patient denies any other complaints at this time. Related Data Home Medications ?Medication ?Instructions ?Recorded ?Confirmed multivitamin 1 tab PO DAILY 03/04/2504/15 ibuprofen 200 mg tablet (Advil) 200 mg PO BID PRN 02/1305/03/25 Previous Rx's ?Medication ?Instructions ?Recorded mupirocin 2 % topical ointment 1 appl topical TID 10 d ays #22 03/04/25 grams levothyroxine 50 mcg tablet 50 mcg PO DAILY #30 tabs 0 04/11/25 (Synthroid) amlodipine 10 mg tablet 10 mg PO DAILY #30 tabs 04/15 05/09 atorvastatin 40 mg tablet (Lipitor) 40 mg PO BEDTIME 9 0 days #90 tabs 05/03/25 cholecalciferol (vitamin D3) 1,250 1,250 mcg PO QWEEK 12 weeks #12 05/03/25 mcg (50,000 unit) capsule caps Allergies Allergy/AdvReac Type Severity Reaction Status Date / Time Sulfa (Sulfonamide Allergy Unknown RED RASH Verified 05/31/25 10:50 Antibiotics) (SULFA (SULFONAMIDE ANTIBIOTICS)) codeine (CODEINE) AdvReac Intermediate VERY TIRED Verified 05/31/25 10:50 AND EXTREME MUSCLE WEAKNESS codeine Allergy Unknown Rash Uncoded 05/31/25 10:50 Review of Systems 2 Constitutional: Constitutional: Reports as per HPI Eyes: Eyes: Reports as per HPI ENT: Reports as per HPI Cardiovascular: Cardiovascular: Reports as per HPI Respiratory: Respiratory: Reports as per HPI Gastrointestinal: Gastrointestinal: Reports as per HPI Genitourinary: Genitourinary: Reports as per HPI Musculoskeletal: Musculoskeletal: Reports as per HPI Integumentary/Breasts: Skin/Breast: Reports as per HPI Neurologic: Reports as per HPI Psychiatric: Psychiatric: Reports as per HPI Endocrine: Endocrine: Reports as per HPI Hematologic/Lymphatic: Hematologic/Lymphatic: Reports as per HPI Allergic/Immunologic: Allergic/Immunologic: Reports as per HPI [facility] Past Medical History Attestation statement: The following information was validated with the patient. Source: old records reviewed and nursing notes reviewed Medical History Diabetes Vitamin D deficiency Hyperlipidemia Hypothyroidism Hand weakness Gait disturbance Shoulder weakness Lower extremity weakness Hypertension Debility, unspecified Wound of lower extremity Healthcare maintenance Social History Social History Housing: House Patient Tobacco Use Status: Never used Tobacco e-Cigarette/Vaping Use: Never Used Advance Directives: Yes Advance Directives Information Provided: No Advance Directives on File: No Do you have a plan to hurt others: No Plan service: No Current occupational status: disabled Physical Exam ED Vital Signs: Vital Signs - 24 hr 05/31/25 10:47 05/31/25 12:19 05/31/25 12:43 Temperature 97.8 F 98 F 98 F Pulse Rate 93 75 75 Respiratory Rate 16 16 16 Blood Pressure 167/68 H 170/71 H 170/71 H Pulse Oximetry 94 99 99 Oxygen Delivery Method Room Air Room Air Room Air BMI result Body Mass Index 34.5 Const General: cooperative, no acute distress, alert and awake Nutritional Appearance: well nourished Orientation/consciousness: patient oriented x3 HENMT Head: Yes normal to inspection and Yes atraumatic Ears: hearing grossly normal bilaterally and external ears normal General nose exam: Normal external nose present, no nasal discharge noted and no epistaxis Face and sinus: Yes normal facial exam, No abrasion and No laceration Mouth: Normal oral and palatal mucosa present, no drooling and no muffled voice Eyes General: appearance normal, both eyes and all related structures Periorbital: periorbital findings normal Eyelids: Yes eyelids normal Conjunctivae: conjunctivae normal Pupils: Equal, round and reactive pupils present EOM: EOMs intact bilaterally Neck Neck: Yes normal visual inspection and Yes full ROM Resp Effort & Inspection: normal respiratory effort and able to speak in complete sentences Neuro General: patient oriented x3, moves all extremities and CN's II-XI intact bilaterally Cranial nerves: Yes Equal, round and reactive pupils present Cognition (Neuro): normal cognition Extrem General: Yes normal to inspection, Yes full ROM and Yes capillary refill normal Psych Appearance: grossly normal Mental Status: mental status grossly normal Affect: normal affect Attitude: cooperative Thought process: Normal thought process present Thought content: Normal thought content present Insight: Good insight present (Psych) Procedures Procedure Narrative Procedure Narrative: EMERGENCY ULTRASOUND INTERPRETATION-Limited Echocardiography [This study was ordered, performed, and interpreted by myself. The study reveals: Impression: NORMAL LV FUNCTION, NO RV DYSFUNCTION, NO PERICARDIAL EFFUSION] [Emergent Cardiac for Indication: Views Used: PLAX, PSSA, A4, SX, IVC Pericardial Effusion/Tamponade Findings: NONE RV Dilation (> LV diam in 4ch apical): NONE Global LV Fxn: NORMAL IVC Dilation and Resp Variation: NORMAL Performed by: MD Brendan Images were stored CPT:35120] Medical Decision Making Medical Decision Making MDM Narrative: Patient is a 74 year old assigned male at with a history of HLD, HTN, and DM presenting to the emergency department today with a high blood pressure reading. Patient's physical exam was as noted in the physical exam portion of this note and unremarkable. Patient's blood work was unremarkable. Patient's EKG showed a longer QT interval compared to his previous but his QT was not dangerously prolonged / concerning. Patient's chest x-ray showed possible cardiomyopathy with a hiatal hernia. Patient remained asymptomatic while in the department, no chest pain, no blurry vision, no double vision, no loss of vision, no headache, no shortness of breath. I explained my physical exam findings as well as all test results to the patient. I answered all questions asked by the patient. I stressed the importance of the patient taking his medication as directed (either prescribed or as the over the counter packaging recommends). I stressed the importance of the patient following up with his primary care provider. I stressed the importance of the patient returning to the emergency department immediately if his symptoms were to worsen or if he were to develop any dizziness, shortness of breath, difficulty breathing, chest pain, blurry vision, loss of vision, nausea, vomiting, abdominal pain, fever, chills, back pain, or any other complaints. Patient verbalized agreement and understanding with this treatment plan and discharge. Differential Diagnosis Differential Diagnoses: The differential diagnosis associated with the presentation includes Elevated blood pressure Asymptomatic HTN Admission/Observation Consideration of admission/observation: Escalation of care including admission/observation considered Patient would have been admitted to the hospital had his work up had any findings where hospital admission was appropriate and his clinical presentation warranted hospital admission. Lab Data [facility] Lab Attestation statement: I reviewed the patient's lab results. My interpretation of these results are in the [facility] Rationale portion of this note. 05/31/25 11:08 05/31/25 11:08 Labs: Lab Results 05/31/25 Range/Units 11:08 WBC 6.5 (4.8-10.8) X10*3/uL RBC 4.81 (4.60-5.80) X10*6/uL Hgb 13.9 L (14.0-18.0) g/dl Hct 42.3 (42.0-52.0) % MCV 87.9 (80.0-98.0) fL MCH 28.9 (27.0-33.0) pg MCHC 32.9 (31.0-36.0) g/dl RDW 13.4 (11.0-16.0) % Plt Count 201 (160-400) X10*3/uL MPV 10.1 (9.4-12.4) fL Immature Gran % (Auto) 0.8 H (0.0-0.4) % Neut % (Auto) 57.8 (45-73) % Lymph % (Auto) 27.5 (20-40) % [place] % (Auto) 10.5 (2-11) % Eos % (Auto) 2.2 (0-4) % Baso % (Auto) 1.2 (0-2) % Lymph # (Auto) 1.8 (1.2-4.9) X10*3/uL [place] # (Auto) 0.7 (0.1-1.2) X10*3/uL Eos # (Auto) 0.1 (0.0-0.4) X10*3/uL Baso # (Auto) 0.1 (0.0-0.2) X10*3/uL Abs Immat Gran (auto) 0.05 H (0.00-0.03) X10*3/uL Absolute Neuts (auto) 3.7 (2.0-8.3) x10*3/uL Absolute Nucleated RBC 0.000 (0.0-0.012) X10*3/uL Nucleated RBC % (auto) 0.0 (0.0-0.2) /100WBC Sodium 139 (135-145) mmol/L Potassium 3.8 (3.3-5.1) mmol/L Chloride 103 (96-108) mmol/L Carbon Dioxide 25 (22-29) mmol/L Anion Gap 15 (12-20) BUN 18 H (9-16) mg/dL Creatinine 0.77 (0.5-1.4) mg/dL Estim Creat Clear Calc 83.1 Estimated GFR > 60 Random Glucose 122 H (60-115) mg/dL Calcium 9.6 (8.4-10.2) mg/dL Total Bilirubin 0.5 (0.0-1.0) mg/dL AST 32 (5-37) U/L ALT 31 (0-40) U/L Alkaline Phosphatase 96 (39-117) U/L Troponin I High Sens 19.0 (<3.5-35.0) ng/L Total Protein 8.4 H (6.5-8.0) g/dL Albumin 4.6 (3.5-5.0) g/dL Independent Interpretation I performed an independent interpretation of an: EKG and Plain X-Ray Interpretation: My interpretation is in agreement with the radiologist's impression of this imaging study. L Reason for Exam: HTN EXAMINATION: XR CHEST CLINICAL INFORMATION: HTN COMPARISON: February 26, 2013 is not available on PACS. TECHNIQUE: PA and lateral views FINDINGS: Poor inspiration. No consolidation, pleural effusion or pneumothorax. Cardiomediastinal silhouette demonstrates a prominent cardiac apex. There is a moderate to large volume hiatal hernia. There is a shaped curvature of the thoracolumbar spine. Osteopenia versus osteoporosis. Multilevel spondylosis. Degenerative changes in the acromioclavicular joints. XR/XR chest 2V IMPRESSION: No acute airspace disease. Concerning hypertensive cardiomyopathy in the correct clinical settings. Moderate to large volume hiatal hernia. Scoliosis and spondylosis, thoracolumbar spine. Electronically signed by: Maximino Ferraro MD 05/31/2025 11:31 AM EDT RP Dictated By: Maximino Ramos MD Signed By: Electronically signed by Maximino Tinoco MD 05/31/25 1131 I independently interpreted this EKG and am in agreement with the below findings: Vent. Rate: 97 BPM Atrial Rate: 97 BPM P-R Int: 192 ms QRS Dur: 80 ms QT Int: 368 ms P-R-T Axes: 18 9 38 degrees QTcB Int: 467 ms Normal sinus rhythm Possible Left atrial enlargement Nonspecific T wave abnormality When compared with ECG of 21-Oct-2014 08:10, Vent. rate has increased by 38 bpm QT has lengthened DD/ 1059 Radiology Impression Discussion of test interpretation with radiology: I have reviewed the radiologist's reading. Independent Historian Clinical information obtained from an independent historian. History obtained from or confirmed by: EMS (EMS provided additional history and confirmed the history provided by the patient. ) Chronic Conditions Patient?s care impacted by: Hypertension Discharge Plan Discharge Clinical Impression: Elevated blood pressure reading Patient Disposition: Home, Self-Care Instructions: Hypertension (ED) Additional Instructions: Your work up today was unremarkable but it is important you follow up with your primary care provider for better hypertension (high blood pressure) management. IF you are prescribed home medications and/or you are taking over the counter medications at home - it is very important you continue to do so as prescribed / directed unless told otherwise. Follow up with your primary care provider. Return to the emergency department immediately if your symptoms worsen or if you develop any numbness, tingling, dizziness, shortness of breath, difficulty breathing, chest pain, blurry vision, loss of vision, nausea, vomiting, abdominal pain, fever, chills, back pain, or any other complaints. Please see the information below about our Patient Portal. If you are not yet enrolled in the [facility] Patient Portal, you will receive an enrollment email invitation following your visit to any [facility] setting. You may also self-enroll in the Patient Portal by visiting our website: [email or web address] The following information is required to access the Patient Portal: - Your [facility] Medical Record Number - Your personal home email address (must match what is in your electronic medical record, Registration staff can assist with this) - Name - Date of Capabilities of the Patient Portal: - Message some providers - View upcoming appointments - Access your health summary, medical history, and visit history - View current conditions and allergies - View procedure and lab results - View your medications, including guidelines, side effects, and precautions - Complete pre-appointment questionnaires requested by your provider - Ready summary reports of your office visits and procedures To access the Patient Portal Mobile Se, follow these directions: - Search iXpert in the Se Store or Vendormate Store - Download the Se - Search for [facility] - Enter your login/password Prescriptions: No Action levothyroxine [Synthroid] 50 mcg tablet 50 mcg PO DAILY Qty: 30 0RF multivitamin Tablet 1 tab PO DAILY mupirocin 2 % ointment 1 appl topical TID 10 Days Qty: 22 0RF atorvastatin [Lipitor] 40 mg tablet 40 mg PO BEDTIME 90 Days Qty: 90 3RF amlodipine 10 mg tablet 10 mg PO DAILY Qty: 30 0RF cholecalciferol (vitamin D3) 1,250 mcg (50,000 unit) capsule 1,250 mcg PO QWEEK 84 Days Qty: 12 0RF ibuprofen [Advil] 200 mg tablet 200 mg PO BID PRN Referrals: Holland Leavitt MD [Primary Care Provider, Internal Medicine] Interventions: ED Discharge Assessment Last Done: 05/31/25 12:19 Discharge Date/Time: 05/31/25 12:52 Print Language: Welsh
[2025-05-31 10:47] VITALS: BP 167/68; BP 189/89; PULSE 93; PULSE 94; RESP 16; TEMP 36.6; O2SAT 94; BMI 34.5
--- NOTE | 2025-05-31 10:53 | ECG_ITS ---
Test Reason : hypertension Blood Pressure : */* mmHG Vent. Rate : 97 BPM Atrial Rate : 97 BPM P-R Int : 192 ms QRS Dur : 80 ms QT Int : 368 ms P-R-T Axes : 18 9 38 degrees QTcB Int : 467 ms Normal sinus rhythm Possible Left atrial enlargement Nonspecific T wave abnormality Prolonged QT Abnormal ECG When compared with ECG of 21-Oct-2014 08:10, Vent. rate has increased by 38 bpm QT has lengthened Referred By: Dilia Gonzalez Electronically Signed By: Woodrow Edmondson
[2025-05-31 11:12] LABS: MANUAL DIFF FLAG NO
[2025-05-31 11:14] LABS: Hematocrit 42.3 % (42.0-52.0); Hemoglobin 13.9 g/dl (14.0-18.0); Imm Gran Abs Auto 0.05 X10*3/uL (0.00-0.03); Imm Gran Pct Auto 0.8 % (0.0-0.4); Lymphocytes Absolute Auto 1.8 X10*3/uL (1.2-4.9); Mean Corpuscular HGB Conc 32.9 g/dl (31.0-36.0); Mean Corpuscular Hemoglobin 28.9 pg (27.0-33.0); Mean Corpuscular Volume 87.9 fL (80.0-98.0); NRBC Abs Auto 0.000 X10*3/uL (0.0-0.012); NRBC Pct Auto 0.0 /100WBC (0.0-0.2); Platelet Count 201 X10*3/uL (160-400); Red Blood Count 4.81 X10*6/uL (4.60-5.80); White Blood Count 6.5 X10*3/uL (4.8-10.8)
[2025-05-31 11:27] LABS: Alanine Aminotransferase 31 U/L (0-40); Albumin Level 4.6 g/dL (3.5-5.0); Alkaline Phosphatase 96 U/L (39-117); Anion Gap 15 (12-20); Aspartate Amino Transferase 32 U/L (5-37); Blood Urea Nitrogen 18 mg/dL (9-16); Calcium 9.6 mg/dL (8.4-10.2); Carbon Dioxide 25 mmol/L (22-29); Chloride 103 mmol/L (96-108); Creatinine Clr Calc Pharmacy 83.1; Estimated Glomerular Filt Rate > 60; Potassium 3.8 mmol/L (3.3-5.1); Sodium 139 mmol/L (135-145); Total Protein 8.4 g/dL (6.5-8.0)
[2025-05-31 11:32] LABS: Troponin-I High Sensitivity 19.0 ng/L (<3.5-35.0)
[2025-05-31 12:19] VITALS: BP 170/71; PULSE 75; RESP 16; TEMP 36.6; O2SAT 99
[2025-05-31 12:43] VITALS: BP 170/71; PULSE 75; RESP 16; TEMP 36.6; O2SAT 99
--- OUTSIDE RECORDS SUMMARY | 2025-05-31 13:38 | XMS_ITS | Patient Health Record ---
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 Role Phone Holland Leavitt Primary Care Provider Lilia Schilling Unavailable [phone] Rajendra Lal Unavailable [phone] Allergies Allergen (clinical drug ingredient) Drug/Non Drug [...] Problem Acquired hammer toe of right foot (7010622471282158) Other hammer toe(s) (acquired), right foot (M20.41) Active confirmed Problem Acquired hammer toe of left foot (2516459079044202) Other hammer toe(s) (acquired), left foot (M20.42) Active confirmed Problem Bilateral atherosclerosis of arteries of lower limbs (disorder) (58336247058958735 ) Atherosclerosis of artery of both lower extremities (I70.203) Active confirmed Q7(A), Q8(2B), Q9(1B,2 C) Vital Signs Blood pressure diastolic 81 mm Hg 04/22/2025 Height 5ft 4in in 04/22/2025 Blood pressure systolic 191 mm Hg 04/22/2025 Weight 194 lbs 04/22/2025 BMI 33.3 kg/m2 04/22/2025 Procedures Procedure Date Ordered Date Performed Result Body Sit e 63677-WEYHTPA NAIL, 1-5 04/22/2025 N/A 70672-HUUX SKIN LESIONS, OVER 4 04/22/2025 N/A X5134-DGCOIRYG DYSTROPHIC NAILS ANY # 04/22/2025 N/A Encounters Encounter Location Date Provider Diagnosis [facility] [address] [address] 04/22/2025 Lilia Mcduffie Other hammer toe(s) (acquired), right foot M20.41 ; Other hammer toe(s) (acquired), left foot M20.42 ; Atherosclerosis of artery of both lower extremities I70.203 ; Tinea unguium B35.1 ; Pain in right toe(s) M79.674 and Pain in left toe(s) M79.[address] [facility] [address] [address] 04/22/2025 Lilia Mcduffie Assessments Encounter Date Diagnosis [...] Treatment Pending Test Test Name Order Date 74201-JIKDBGX NAIL, 1-5 04/22/2025 16094-EFNB SKIN LESIONS, OVER 4 04/22/20 25 T9649-LMAJTCWU DYSTROPHIC NAILS ANY # Next Appt Details Provider Name:Lilia Bhatti ness, 10/24/2025 10:00:00 AM, [address] [facility], [place], [address], Insurance Providers Payer Name Payer Address Payer Phone Subscriber Number Group Number Insured Name Patient Relationship to Insured Coverage Start Date Coverage End Date [employer] [place] [employer]vantage [address] [facility] [address] [place] [address] [id number] Clay Jennings Self - patient is the insured 2 Medical (General) History Medical History History ICD Code Anxiety Cataracts Measles Mumps Chicken pox
== END 2025-05-31 12:52 | disposition home or self-care (01) ==
PROVIDERS: Physician Assistant Medical; Emergency Provider Emergency Medicine; PCP Student in an Organized Health Care Education/Training Program
DX: I10 Essential (primary) hypertension (principal); R94.31 Abnormal electrocardiogram [ECG] [EKG]; E11.9 Type 2 diabetes mellitus without complications; Z79.899 Other long term (current) drug therapy
CPT/HCPCS: 36415; 71046; 80053; 84484; 85025; 93005; 93308; 99284

== ENCOUNTER → 2025-05-31 10:53 | Outpatient (BNV) | payer MEDICARE, SELFPAY | PROVIDERS: Emergency Provider Emergency Medicine; PCP Student in an Organized Health Care Education/Training Program; Visit Provider Internal Medicine Cardiovascular Disease | DX: R94.31 Abnormal electrocardiogram [ECG] [EKG] (principal); I10 Essential (primary) hypertension | CPT/HCPCS: 93010 ==

== ENCOUNTER → 2025-05-31 10:53 | Outpatient (BNV) | payer MEDICARE, SELFPAY | PROVIDERS: PCP Student in an Organized Health Care Education/Training Program; Visit Provider Radiology Diagnostic Radiology | DX: I10 Essential (primary) hypertension (principal); K44.9 Diaphragmatic hernia without obstruction or gangrene; M47.815 Spondylosis without myelopathy or radiculopathy, thoracolumbar region; M41.35 Thoracogenic scoliosis, thoracolumbar region | CPT/HCPCS: 71046 ==

== ENCOUNTER 2025-06-13 08:01 | Outpatient (REF) | payer MEDICARE, SELFPAY ==
--- OUTSIDE RECORDS SUMMARY | 2025-05-24 05:30 | XMS_ITS ---
Author Organization [facility] Address [address] [place] [address] Care Team Providers Care Piano Maker Name Role Phone Holland Warner Primary Care Provider Lilia Schilling Unavailable [phone] Rajendra Lal Unavailable [phone] Allergies Allergen (clinical drug ingredient) Drug/Non Drug [...] Negative Encounters Encounter Location Date Provider Diagnosis [facility] [address] [place] [address] 05/24/2025 Rajendra Lal Plan Of Treatment Next Appt Details Provider Name:Lilia arzola, 10/24/2025 10:00:00 AM, [address] [place], [address], Progress Notes * Lauren POWER:[birth year] (74 yo M)Acc No.[id number]:05/24/2025 Progress Notes Patient: Clay SHERIFF Provider: Swathi Lal DPM :1950 A ge:74 Y S ex:Male Date:05/24/2025 Address:[address] [place] [address], [place], [facility] Pcp:Holland Warner Subjective: * Chief Complaints: * [...] enies. C ardiovascular: Pacemaker d enies. M MANAGER PHARMACEUTICAL d enies. W PW d enies. C [...] DPM Date: Generated for Amanda Perkins on: 08:10 AM EDT
--- NOTE | ~2025-06-13 | US_ITS ---
EXAMINATION: Noninvasive assessment of the bilateral lower extremities WITHOUT ARTERIAL DUPLEX, ANKLE BRACHIAL INDICES (ABIs), and PULSE VOLUME RECORDINGS (PVRs). CLINICAL INFORMATION: S 81.809 A. TECHNIQUE: Duplex Doppler techniques with waveform analysis and measurement of velocities in the bilateral common femoral, profunda femoris, superficial femoral, popliteal and tibial arteries were performed. The study was performed only at rest. COMPARISON: None FINDINGS: DIRECT DUPLEX DOPPLER FINDINGS: RIGHT LEG: Common femoral artery: 60 cm/s, phasicity: Monophasic. Reversal. Profunda femoris artery: 55 cm/s, phasicity: Monophasic. Spectral broadening. Superficial femoral artery (proximal): 37 cm/s, phasicity: Biphasic. Spectral broadening. Superficial femoral artery (mid): No color Doppler flow. Superficial femoral artery (distal): 64 cm/s, phasicity: Monophasic. Spectral broadening. Popliteal artery: 49 cm/s, phasicity: Monophasic. Spectral broadening. Posterior tibial artery: 10 cm/s, phasicity: Monophasic. Spectral broadening. Peroneal artery: 24 cm/s, phasicity: Monophasic. Spectral broadening. Anterior tibial artery: 43 cm/s, phasicity: Monophasic. Spectral broadening. Dorsalis pedis artery: 45 cm/s, phasicity:Monophasic. Spectral broadening. LEFT LEG: Common femoral artery: 145 cm/s, phasicity: Triphasic. Profunda femoris artery: 101 cm/s, phasicity: Triphasic. Superficial femoral artery (proximal): 22 cm/s, phasicity: Biphasic. Spectral broadening. Superficial femoral artery (mid): 397 cm/s, phasicity: Monophasic. Spectral broadening. Superficial femoral artery (distal): 25 cm/s, phasicity: Monophasic. Spectral broadening. Popliteal artery: 223 cm/s, phasicity: Monophasic. Spectral broadening. Posterior tibial artery: 34 cm/s, phasicity: Monophasic. Spectral broadening. Peroneal artery: 21 cm/s, phasicity: Monophasic. Spectral broadening. Anterior tibial artery: 34 cm/s, phasicity: Monophasic. Spectral broadening. Dorsalis pedis artery: 91 cm/s, phasicity: Monophasic. Spectral broadening. US/US arterial duplex LE BI IMPRESSION: Right leg: Moderate to severe inflow disease throughout the interrogated arteries with likely occluded mid segment of the superior femoral artery. Left leg: Moderate to severe inflow disease throughout the interrogated arteries. High degree stenosis mid segment superficial femoral artery and popliteal artery. Electronically signed by: Maximino Ferraro MD 06/13/2025 09:39 AM EDT RP
--- OUTSIDE RECORDS SUMMARY | 2025-06-13 08:11 | XMS_ITS | Patient Health Record ---
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 Name Role Phone Holland Warner Primary Care Provider Lilia Schilling Unavailable [phone] Rajendra Lal Unavailable [phone] Allergies Allergen (clinical drug ingredient) Drug/Non Drug [...] Problem Acquired hammer toe of right foot (6999814367851350) Other hammer toe(s) (acquired), right foot (M20.41) Active confirmed Problem Acquired hammer toe of left foot (9255276725080526) Other hammer toe(s) (acquired), left foot (M20.42) Active confirmed Problem Bilateral atherosclerosis of arteries of lower limbs (disorder) (51631284001782625 ) Atherosclerosis of artery of both lower extremities (I70.203) Active confirmed Q7(A), Q8(2B), Q9(1B,2 C) Vital Signs Blood pressure diastolic 81 mm Hg 04/22/2025 Height 5ft 4in in 04/22/2025 Blood pressure systolic 191 mm Hg 04/22/2025 Weight 194 lbs 04/22/2025 BMI 33.3 kg/m2 04/22/2025 Procedures Procedure Date Ordered Date Performed Result Body Sit e 63863-VKWHLGP NAIL, 1-5 04/22/2025 N/A 02942-WWJI SKIN LESIONS, OVER 4 04/22/2025 N/A X8759-WWJJPUMP DYSTROPHIC NAILS ANY # 04/22/2025 N/A Encounters Encounter Location Date Provider Diagnosis [facility] [address] [address] 04/22/2025 Lilia Mcduffie Other hammer toe(s) (acquired), right foot M20.41 ; Other hammer toe(s) (acquired), left foot M20.42 ; Atherosclerosis of artery of both lower extremities I70.203 ; Tinea unguium B35.1 ; Pain in right toe(s) M79.674 and Pain in left toe(s) M79.675 [facility] [address] [address] 04/22/2025 Lilia Mcduffie Assessments Encounter Date Diagnosis [...] Treatment Pending Test Test Name Order Date 42664-SQBVKEW NAIL, 1-5 04/22/2025 35765-CWUI SKIN LESIONS, OVER 4 04/22/20 25 V5358-[id number] DYSTROPHIC NAILS ANY # Next Appt Details Provider Name:Lilia Aletajuanita ness, 10/24/2025 10:00:00 AM, [address] [facility], [place], [address], Insurance Providers Payer Name Payer Address Payer Phone Subscriber Number Group Number Insured Name Patient Relationship to Insured Coverage Start Date Coverage End Date [employer] [place] [employer]vantage [address] [place] [address] [phone] [id number] Clay Jennings Self - patient is the insured 2 Medical (General) History Medical History History ICD Code Anxiety Cataracts Measles Mumps Chicken pox
== END 2025-06-13 08:02 | disposition home or self-care (01) ==
LOC: HO.US 08:01
PROVIDERS: PCP Student in an Organized Health Care Education/Training Program; Visit Provider Student in an Organized Health Care Education/Training Program
DX: S81.809A Unspecified open wound, unspecified lower leg, initial encounter (principal)
CPT/HCPCS: 93925

== ENCOUNTER → 2025-06-13 08:02 | Outpatient (BNV) | payer MEDICARE, SELFPAY | PROVIDERS: PCP Student in an Organized Health Care Education/Training Program; Visit Provider Radiology Diagnostic Radiology | DX: S81.809A Unspecified open wound, unspecified lower leg, initial encounter (principal); I73.9 Peripheral vascular disease, unspecified | CPT/HCPCS: 93925 ==

== ENCOUNTER 2025-06-20 10:50 | Outpatient (AMB) | payer MEDICARE, SELFPAY ==
--- OUTSIDE RECORDS SUMMARY | 2025-05-24 04:30 | XMS_ITS ---
Author Organization [facility] Address [address] [place] [address] Care Team Providers Care Health Care Liaison Name Role Phone Holland Warner Primary Care Provider Lilia Schilling Unavailable [phone] Rajendra Lal Unavailable [phone] Allergies Allergen (clinical drug ingredient) Drug/Non Drug Allergy documented on EMR Reaction Allergy Type Onset Date Status codeine Codeine Unknown Drug Allergy Active REASON FOR VISIT Dr Marley Medications Medication SIG (Take, Route, Frequency, Duration) Notes Start Date End Date Status Doxycycline Hyclate 100 MG 1 capsule Ora lly Once a day Active Advil 200 MG 1 tablet with food o r milk as needed Orally Three times a day Active Social History Tobacco Use: Social History Observation Description Date Details (start date - stop date) Never Smoker NA - NA Tobacco use other than smoking: Question Answer Notes Are you an other tobacco user? No Tobacco Control (Standard) Question Answer Notes Tobacco use: Nonsmoker Additional Findings: Tobacco non-user Current no nsmoker AUDIT-C (Standard) Question Answer Notes Did you have a drink containing alcohol in the p ast year? No Points 0 Interpretation Negative Encounters Encounter Location Date Provider [facility] [address] [place] [address] 05/24/2025 Rajendra Lal Plan Of Treatment Next Appt Details Provider Name:Lilia arzola, 10/24/2025 10:00:00 AM, [address] [place], [address], Progress Notes * Lauren POWER:[birth year] (74 yo M)Acc No.[id number]:05/24/2025 Progress Notes Patient: Clay SHERIFF Provider: Swathi Lal DPM :1950 A ge:74 Y S ex:Male Date:05/24/2025 Address:[address] [place] [address], [place], [facility] Pcp:Holland Warner Subjective: * Chief Complaints: * [address] Marley. * ROS: G eneral/Constitutional: Nausea d enies. V omiting d enies. H shane Thirst d enies. L oss appetite d enies. C hills d enies. F atigue d enies.?Fever d enies. N ight Sweats d enies. U nexplained weight loss d enies. U nexplained weight gain d enies. H EENTM: Dentures a dmits. D izziness d enies. G lasses/contacts d enies. R etinopathy d enies. B lurred/double vision a dmits. T MJ?denies. D ischarge/drainage d enies. I mplants d enies. S ore throat d enies. D ental implants d enies. H jonatan of hearing d enies. D ifficulty chewing/swallowing/speaking d enies. N ose bleeds d enies. S ore mouth d enies. ? R espiratory: On Oxygen d enies. P neumonia/pleurisy d enies.?Bronchitis d enies. E mphysema d enies. C oughing d enies. C ough blood?denies. S hortness of breath d enies. W heezing d enies. C ardiovascular: Pacemaker d enies. M ETHICS MANAGER d enies. W PW d enies. C HF d enies. H eart attack d enies. S eptal defect d enies. R apid beat d enies. C hest pain d enies. A trial Fib. d enies. M urmur/Palpitations d enies. G astrointestinal: Hemorrhoids d enies. S tomach/Abdominal pain d enies. D ark blood stool d enies. I rritable bowel d enies. C onstipation d enies. D iarrhea d enies. H ematology: Swelling d enies. C lots d enies. V aricose Veins d enies. B ruising d enies. B leeding problem d enies. G enitourinary: Blood urine d enies. F requent/Painfu/urination/bladder control d enies. K idney stones d enies. I nfection (UTI) d enies. N ephropathy d enies. s ex trans dis (STD) d enies. P rostate d enies. M usculoskeletal: Hammertoes d enies. B unions d enies. B ack Pain d enies. M uscle Cramps/ Resting d enies. M uscle cramps / walking d enies.?Generalized aches and pains d enies. W eakness d enies. I nteg.: Faith d enies. S cars d enies. C orns/calluses?admits. I ngrown nails a dmits. P ainful nails a dmits. O pen Sores d enies. R ashes d enies. N eurologic: Difficulty sleeping d enies. B rain disorder d enies. N umbness d enies. B alance trouble d enies. C onfusion a dmits. F ainting/blackouts d enies. T ingling d enies. T remors d enies. * Medical History: A nxiety, Cataracts, Measles, Mumps, Chicken pox. * Family History: M other: , diagnosed with Other malignant neoplasm of unspecified site, Family history of arthritis. F ather: , diagnosed with Unspecified essential hypertension, Unspecified heart disease, Unspecified cerebral artery occlusion with cerebral infarction. * Social History: T obacco Use: T obacco use other than smoking A re you an other tobacco user? N o Tobacco Control (Standard) T obacco use: N onsmoker A dditional Findings: Tobacco non-user C urrent nonsmoker M iscellaneous: C affeine: yes. Marital status: Single. D rug/Alcohol: A MEETA-C (Standard) D id you have a drink containing alcohol in the past year? N o P oints 0 I nterpretation N egative * Medications: T aking Advil 200 MG Tablet 1 tablet with food or milk as needed Orally Three times a day , Taking Doxycycline Hyclate 100 MG Capsule 1 capsule Orally Once a day * Allergies: C odeine. Objective: * Vitals: Assessment: Plan: * Treatment: * Images: * The named appointment provid er may or may not be the originator of this progress note, and it is not deemed complete until electronically signed by the appointment provider. Sign off status: Pending * Provider: Swathi Lal DPM Date: Generated for Amanda Perkins on: 08/20/2024 01:10 PM EST
--- NOTE | 2025-06-20 10:53 | A.OFFVIS_ITS ---
Vital Signs 06/20/25 11:01 Height 5 ft 4 in Weight 202 lb 13.204 oz BMI 34.8 BP 168/64 H Blood Pressure Location Rt brachial Position Sitting Pulse 74 Pulse Source Pulse Oximeter Pulse Oximetry (%) 96 Oxygen Delivery Method Room Air Intake Visit Reasons: Hypothyroidism Intake Note: NEW Patient presents today to establish care for Hypothyroidism: No acute complaints reported at this time. 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 The hypothyroidism was identified following a recent physical in April, after the patient re-engaged with medical care for the first time in over 11 years. The diagnosis was made based on abnormal thyroid function tests obtained during routine bloodwork. The patient was started on levothyroxine 50 mcg daily. There has been some concern regarding medication adherence, as the patient has not been consistently taking medications as prescribed, and there is a history of noncompliance noted in prior documentation. The patient reports taking levothyroxine at night, sometimes with other medications and occasionally with coffee or juice, rather than as recommended. He was unaware of the need to take levothyroxine on an empty stomach, first thing in the morning, with water or black coffee, and to wait at least one hour before consuming other medications or food. He denies missing doses but admits to not always following the correct timing or administration instructions. Symptomatically, the patient endorses some fatigue and weight gain, which he attributes in part to aging. He denies significant cold intolerance, hair loss, brittle nails, or dysphagia. He does report occasional constipation, which he manages with dietary fiber and stool softeners. He also notes a sensation of dry throat, which he attributes to his medications. There is a family history of thyroid disease (mother with hyperthyroidism requiring thyroidectomy), but no known family history of hypothyroidism. Review of Systems General: Fatigue, weight gain. No fever, night sweats, or recent illness. HEENT: No dysphagia, no neck pain, no goiter, no visual changes. Cardiac: No chest pain, palpitations, or syncope. Respiratory: No shortness of breath, cough, or wheezing. GI: Occasional constipation, no abdominal pain, no diarrhea. : No dysuria, no hematuria. Musculoskeletal: No myalgias or arthralgias. Burning sensation in feet. Neuro: No headaches, no focal weakness, no recent changes in mental status. Derm: No hair loss, no brittle nails, no skin changes. Endocrine: Fatigue, weight gain. No heat/cold intolerance. Physical exam General: Well appearing. NAD. Neck/Thyroid: Thyroid not palpable, no nodules. CV: RRR, no murmur. No edema. Resp:Lungs clear to auscultation bilaterally Abdomen: Soft, nontender. nondistended Extremities/Neuro: No tremor of outstretched hands. Patient is using a walker Laboratory Tests 04/11/25 09:53 BUN 16 Creatinine 0.82 25-OH Vitamin D Total 19.9 L TSH 33.68 H Free T4 0.49 L PFSH Medical History (Updated 06/20/25 @ 16:34 by Roz Herrera MD) Peripheral artery disease Diabetes Vitamin D deficiency Hyperlipidemia Hypothyroidism Hand weakness Gait disturbance Shoulder weakness Lower extremity weakness Hypertension Debility, unspecified Wound of lower extremity Healthcare maintenance Surgical History (Updated 06/20/25 @ 11:14 by COLTON Scott) Hx of foot surgery Family History (Updated 06/20/25 @ 11:12 by COLTON Scott) Mother Cervical cancer Hx of total thyroidectomy Thyroid disease Hyperthyroidism Father CHF (congestive heart failure) Heart attack Social History Housing: House Patient Tobacco Use Status: Never used Tobacco e-Cigarette/Vaping Use: Never Used service: No Current occupational status: disabled Physical Exam Vital Signs: Last Vital Signs Pulse 74 06/20/25 11:01 BP 168/64 H 06/20/25 11:01 Pulse Ox 96 06/20/25 11:01 Oxygen Delivery Method Room Air 06/20/25 11:01 BMI result Body Mass Index 34.8 Assessment & Plan Assessment & Plan (1) Hypothyroidism: Code(s): E03.9 - Hypothyroidism, unspecified Category: Medical Qualifiers: Hypothyroidism type: unspecified Qualified Code(s): E03.9 - Hypothyroidism, unspecified Plan: 74 years old male with a history of diabetes mellitus, hypertension, peripheral vascular disease, vitamin D deficiency, and newly diagnosed hypothyroidism. The diagnosis was made following a prolonged lapse in medical care. The patient was started on levothyroxine 50 mcg daily but has not been taking it as recommended, leading to concerns about suboptimal control. Compliance with medication and proper administration technique are the primary issues at this time. Plan Reinforced education on proper levothyroxine administration: take first thing in the morning, on an empty stomach, with water or black coffee only; wait at least one hour before eating or taking other medications. Continue current dose of levothyroxine 50 mcg daily. Recheck TSH and free T4 in 6 weeks to assess adequacy of replacement and compliance. Consider checking thyroid peroxidase (TPO) antibodies to evaluate for Zach?s thyroiditis as the likely etiology. Adjust dose based on follow-up labs and clinical response. Plan 30 minutes spent reviewing previous records, labs, imaging, education and documenting in the chart Orders: Orders TSH reflex Free T4 6 Weeks E03.9 - Hypothyroidism, unspecified Thyroid Peroxidase Antibodies 6 Weeks E03.9 - Hypothyroidism, unspecified Coding Level of Care Code Tele New Pt Level 3 (88721) Diagnoses Hypothyroidism, unspecified type E03.9 Hypothyroidism type: unspecified
[2025-06-20 11:01] VITALS: BP 168/64; PULSE 74; O2SAT 96; BMI 34.8
--- OUTSIDE RECORDS SUMMARY | 2025-06-20 13:10 | XMS_ITS | Patient Health Record ---
Author Organization [facility] Address [address] [facility] [place] [address] Care Team Providers Care Final Inspector Name Role Phone Holland Warner Primary Care Provider Lilia Schilling Unavailable [phone] Rajendra Lal Unavailable [phone] Allergies Allergen (clinical drug ingredient) Drug/Non Drug [...] Problem Acquired hammer toe of right foot (0633779872809793) Other hammer toe(s) (acquired), right foot (M20.41) Active confirmed Problem Acquired hammer toe of left foot (6066674941973752) Other hammer toe(s) (acquired), left foot (M20.42) Active confirmed Problem Bilateral atherosclerosis of arteries of lower limbs (disorder) (98397670851745167 ) Atherosclerosis of artery of both lower extremities (I70.203) Active confirmed Q7(A), Q8(2B), Q9(1B,2 C) Vital Signs Blood pressure diastolic 81 mm Hg 04/22/2025 Height 5ft 4in in 04/22/2025 Blood pressure systolic 191 mm Hg 04/22/2025 Weight 194 lbs 04/22/2025 BMI 33.3 kg/m2 04/22/2025 Procedures Procedure Date Ordered Date Performed Result Body Sit e 89272-FQECOMS NAIL, 1-5 04/22/2025 N/A 20775-SSOD SKIN LESIONS, OVER 4 04/22/2025 N/A B7069-AFKWWWGW DYSTROPHIC NAILS ANY # 04/22/2025 N/A Encounters Encounter Location Date Provider Diagnosis [facility] [address] [address] 04/22/2025 Lilia Mcduffie Other hammer toe(s) (acquired), right foot M20.41 ; Other hammer toe(s) (acquired), left foot M20.42 ; Atherosclerosis of artery of both lower extremities I70.203 ; Tinea unguium B35.1 ; Pain in right toe(s) M79.674 and Pain in left toe(s) M79.675 [facility] [address] [address] 04/22/2025 Lilia Mcduffie Assessments Encounter Date Diagnosis [...] Treatment Pending Test Test Name Order Date 04447-VMVQZKF NAIL, 1-5 04/22/2025 77667-HRSV SKIN LESIONS, OVER 4 04/22/20 25 L2224-XIPRIJYF DYSTROPHIC NAILS ANY # Next Appt Details Provider Name:Lilia Aletajuanita ness, 10/24/2025 10:00:00 AM, [address] [facility], [place], [address], Insurance Providers Payer Name Payer Address Payer Phone Subscriber Number Group Number Insured Name Patient Relationship to Insured Coverage Start Date Coverage End Date [employer] [place] [employer]vantage [address] [place] [address] [id number] Clay Jennings Self - patient is the insured 2 Medical (General) History Medical History History ICD Code Anxiety Cataracts Measles Mumps Chicken pox
== END 2025-06-20 11:31 | disposition home or self-care (01) ==
LOC: HO.ENCR 10:51
PROVIDERS: PCP Student in an Organized Health Care Education/Training Program; Visit Provider Student in an Organized Health Care Education/Training Program
DX: E03.9 Hypothyroidism, unspecified (principal)
CPT/HCPCS: 99203

== ENCOUNTER → 2025-06-20 10:50 | Outpatient (BNVA) | payer MEDICARE, SELFPAY | PROVIDERS: PCP Student in an Organized Health Care Education/Training Program; Visit Provider Student in an Organized Health Care Education/Training Program | DX: E03.9 Hypothyroidism, unspecified (principal) | CPT/HCPCS: 99202 ==

== ENCOUNTER 2025-06-27 14:16 | Outpatient (AMB) | payer MEDICARE, SELFPAY ==
--- OUTSIDE RECORDS SUMMARY | 2025-05-24 04:30 | XMS_ITS ---
Author Organization [facility] Address [address] [place] [address] Care Team Providers Care Distributed Energy Systems Consultant Name Role Phone Holland Warner Primary Care Provider Lilia Schilling Unavailable [phone] Rajendra Lal Unavailable [phone] Allergies Allergen (clinical drug ingredient) Drug/Non Drug [...] Negative Encounters Encounter Location Date Provider Diagnosis [facility] [address] [place] [address] 05/24/2025 Rajendra Lal Plan Of Treatment Next Appt Details Provider Name:Lilia arzola, 10/24/2025 10:00:00 AM, [address] [place], [address], Progress Notes * Lauren POWER:[birth year] (74 yo M)Acc No.[id number]:05/24/2025 Progress Notes Patient: Clay SHERIFF Provider: Swathi Lal DPM :1950 A ge:74 Y S ex:Male Date:05/24/2025 Address:[address] [place] [address], [place], [facility] Pcp:Holland Warner Subjective: * Chief Complaints: * [...] enies. C ardiovascular: Pacemaker d enies. M PRODUCT MARKETING MANAGER d enies. W PW d enies. [...] DPM Date: Generated for Amanda Perkins on: 08/27/2024 05:40 PM EST
[2025-06-27 14:36] VITALS: BMI 34.7
--- NOTE | 2025-06-27 14:36 | A.OFFVIS_ITS ---
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 Had an arterial US 06/13/25. Does have bilateral LE redness and scabbing. Does state bilateral pain to touch, including bedding/sheets. Does get heaviness when ambulating. Pt states pain when keeping feet stagnent. 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 He reports bilateral leg swelling and redness, with the right leg being more affected. 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 The patient denies smoking but is uncertain about his diabetic status, acknowledging high sugar intake and dietary modifications to manage it. He has experienced leg ulcers, attributed to minor injuries, and reports non- compliance with medications prescribed by his primary care physician, Dr. Scott. An ultrasound ordered by Dr. Scott revealed poor blood flow to the legs, suggesting possible arterial blockage, particularly in the thigh area. [facility] Medical History Peripheral artery disease Diabetes Vitamin D deficiency Hyperlipidemia Hypothyroidism Hand weakness Gait disturbance Shoulder weakness Lower extremity weakness Hypertension Debility, unspecified Wound of lower extremity Healthcare maintenance Surgical History Hx of foot surgery Family History Mother Cervical cancer Hx of total thyroidectomy Thyroid disease Hyperthyroidism Father CHF (congestive heart failure) Heart attack Social History Housing: House Patient Tobacco Use Status: Never used Tobacco e-Cigarette/Vaping Use: Never Used service: No Current occupational status: disabled Review of Systems Const All systems reviewed & are unremarkable except as noted in HPI and below Reports no additional complaints ENT Reports Normal hearing present Card Denies chest pain, Denies chest pain at rest, Denies chest pain with activity and Denies pedal edema Resp Denies cough GI Denies abdominal pain Musc Denies abnormal gait, Denies muscle cramps and Denies radiating pain into limb Skin/Breast Denies skin ulcer and Denies wounds Neuro Reports Normal hearing present and Denies abnormal gait Psych Reports no additional complaints Physical Exam Vital Signs: BMI result Body Mass Index 34.7 Const General: cooperative, healthy appearing and comfortable Orientation/consciousness: oriented to person, oriented to place and oriented to time HEENT Head: Yes normal to inspection Neck Neck: Yes normal visual inspection Carotids: no bruits Chest Chest palpation & inspection: normal inspection of the chest Resp Effort & Inspection: normal respiratory effort and able to speak in complete sentences Auscultation: clear to auscultation bilaterally, no crackles, no rales, no rhonchi and no wheezes Cardio Other: Bilateral DP signals Rate: regular rate Rhythm: regular rhythm Heart sounds: S1 normal heart sound present and S2 normal heart sound present Bruits: no carotid bruits GI Inspection: Yes normal to inspection Skin Wounds: no wounds Hair: normal Neuro General: oriented to person, oriented to place and oriented to time Cranial nerves: Yes CN's II-XII intact bilaterally and Yes Normal hearing present Cognition (Neuro): normal cognition Motor exam (neuro): 5/5 motor strength present throughout Extrem Other: venous exam: No significant superficial varicosities or spider telangiectasias, minimal edema General: No clubbing, No cyanosis and No edema Psych Appearance: grossly normal Mental Status: mental status grossly normal Speech and movement: Normal speech and movement present Results Reviewed Results Reviewed: Noninvasive arterial testing dated 06/13/2025 demonstrates right leg disease in the SFA along with left leg disease in the SFA and popliteal. Written report and images were reviewed. Assessment & Plan Assessment & Plan (1) Peripheral artery disease: Code(s): I73.9 - Peripheral vascular disease, unspecified Category: Medical Plan: Patient notes leg pain when walking distances. I have discussed the pathophysiology of peripheral vascular disease with the patient. I have also discussed risk factor modification. I have reviewed the patient's arterial testing which reveals SFA disease of the right leg. the patient would benefit from a right leg endovascular peripheral angiogram with possible angioplasty, stent, and/or atherectomy. This has been discussed in detail with the patient along with risks, benefits, and complications. This includes but is not limited to bleeding, infection, heart attack, need for emergent surgical repair, limb ischemia, blood vessel damage, bleeding, puncture, kidney injury, bruising, allergic reaction, and skin reaction. The patient demonstrates a clear understanding. We will schedule for the next appropriate time. Thank you for allowing us to assist in this patient's care. Coding Level of Care Code New Pt Level 4 (97556) Diagnoses Peripheral artery disease I73.9
--- OUTSIDE RECORDS SUMMARY | 2025-06-27 17:40 | XMS_ITS | Patient Health Record ---
Author Organization [facility] Address [address] [facility] [place] [address] Care Team Providers Care Medical Imaging Technologist Name Role Phone Holland Warner Primary Care Provider Lilia Schilling Unavailable [phone] Rajendra Lal Unavailable [phone] Allergies Allergen (clinical drug ingredient) Drug/Non Drug [...] Problem Acquired hammer toe of right foot (5197234928215815) Other hammer toe(s) (acquired), right foot (M20.41) Active confirmed Problem Acquired hammer toe of left foot (6927990224115535) Other hammer toe(s) (acquired), left foot (M20.42) Active confirmed Problem Bilateral atherosclerosis of arteries of lower limbs (disorder) (09752290075870553 ) Atherosclerosis of artery of both lower extremities (I70.203) Active confirmed Q7(A), Q8(2B), Q9(1B,2 C) Vital Signs Blood pressure diastolic 81 mm Hg 04/22/2025 Height 5ft 4in in 04/22/2025 Blood pressure systolic 191 mm Hg 04/22/2025 Weight 194 lbs 04/22/2025 BMI 33.3 kg/m2 04/22/2025 Procedures Procedure Date Ordered Date Performed Result Body Sit e 58019-IDEGQKA NAIL, 1-5 04/22/2025 N/A 29773-CXEA SKIN LESIONS, OVER 4 04/22/2025 N/A B0075-DHKSXEUU DYSTROPHIC NAILS ANY # 04/22/2025 N/A Encounters Encounter Location Date Provider Diagnosis [facility] [address] [address] 04/22/2025 Lilia Mcduffie Other hammer toe(s) (acquired), right foot M20.41 ; Other hammer toe(s) (acquired), left foot M20.42 ; Atherosclerosis of artery of both lower extremities I70.203 ; Tinea unguium B35.1 ; Pain in right toe(s) M79.674 and Pain in left toe(s) M79.675 [facility] [address] [address] 04/22/2025 Lilia Mcduffie Assessments Encounter Date Diagnosis [...] Treatment Pending Test Test Name Order Date 95893-MPIUGWH NAIL, 1-5 04/22/2025 29057-LBNQ SKIN LESIONS, OVER 4 04/22/20 25 Q6576-VVUVYTUC DYSTROPHIC NAILS ANY # Next Appt Details Provider Name:Lilia Aletajuanita ness, 10/24/2025 10:00:00 AM, [address] [facility], [place], [address], Insurance Providers Payer Name Payer Address Payer Phone Subscriber Number Group Number Insured Name Patient Relationship to Insured Coverage Start Date Coverage End Date [employer] [place] [employer] [address] [place] [address] [phone] [id number] Clay Jennings Self - patient is the insured 2 Medical (General) History Medical History History ICD Code Anxiety Cataracts Measles Mumps Chicken pox
== END 2025-06-27 15:14 | disposition home or self-care (01) ==
LOC: HO.HVS 14:16
PROVIDERS: PCP Internal Medicine; Visit Provider Surgery Vascular Surgery
DX: I73.9 Peripheral vascular disease, unspecified (principal)
CPT/HCPCS: 99204

== ENCOUNTER → 2025-06-27 14:16 | Outpatient (BNVA) | payer MEDICARE, SELFPAY | PROVIDERS: PCP Internal Medicine; Visit Provider Surgery Vascular Surgery | DX: I73.9 Peripheral vascular disease, unspecified (principal) | CPT/HCPCS: 99202 ==

== ENCOUNTER 2025-07-10 07:20 | Day surgery (SDC) | payer MEDICARE, SELFPAY ==
--- OUTSIDE RECORDS SUMMARY | 2025-05-24 04:30 | XMS_ITS ---
Author Organization [facility] Address [address] [place] [address] Care Team Providers Care Fire Chief'S Aide Name Role Phone Holland Warner Primary Care Provider Lilia Schilling Unavailable [phone] Rajendra Lal Unavailable [phone] Allergies Allergen (clinical drug ingredient) Drug/Non Drug [...] Date Provider Diagnosis [facility] [address] [place] [address] 05/24/2025 Rajendra Lal Plan Of Treatment Next Appt Details Provider Name:Lilia arzola, 10/24/2025 10:00:00 AM, [address] [place], [address], Progress Notes * Lauren POWER:[birth year] (74 yo M)Acc No.[id number]:05/24/2025 Progress Notes Patient: Clay SHERIFF Provider: Swathi Lal DPM :1950 A ge:74 Y S ex:Male Date:05/24/2025 Address:[address] [place] [address], [place], [facility] Pcp:Holland Warner Subjective: * Chief Complaints: * [...] enies. C ardiovascular: Pacemaker d enies. 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 W PW d enies. C [...] DPM Date: Generated for Amanda Perkins on: 08/28/2024 06:38 AM EST
--- OUTSIDE RECORDS SUMMARY | 2025-06-28 06:38 | XMS_ITS | Patient Health Record ---
Author Organization [facility] Address [address] [facility] [place] [address] Care Team Providers Care Textile Examiner Name Role Phone Holland Warner Primary Care Provider Lilia Schilling Unavailable [phone] Rajendra Lal Unavailable [phone] Allergies Allergen (clinical drug ingredient) Drug/Non Drug [...] Problem Acquired hammer toe of right foot (2957742411956553) Other hammer toe(s) (acquired), right foot (M20.41) Active confirmed Problem Acquired hammer toe of left foot (3826071802463404) Other hammer toe(s) (acquired), left foot (M20.42) Active confirmed Problem Bilateral atherosclerosis of arteries of lower limbs (disorder) (95592369367635170 ) Atherosclerosis of artery of both lower extremities (I70.203) Active confirmed Q7(A), Q8(2B), Q9(1B,2 C) Vital Signs Blood pressure diastolic 81 mm Hg 04/22/2025 Height 5ft 4in in 04/22/2025 Blood pressure systolic 191 mm Hg 04/22/2025 Weight 194 lbs 04/22/2025 BMI 33.3 kg/m2 04/22/2025 Procedures Procedure Date Ordered Date Performed Result Body Sit e 65486-TIHGDLG NAIL, 1-5 04/22/2025 N/A 63432-GUNO SKIN LESIONS, OVER 4 04/22/2025 N/A U8010-MSNBXHJJ DYSTROPHIC NAILS ANY # 04/22/2025 N/A Encounters Encounter Location Date Provider Diagnosis [facility] [address] [address] 04/22/2025 Lilia Mcduffie Other hammer toe(s) (acquired), right foot M20.41 ; Other hammer toe(s) (acquired), left foot M20.42 ; Atherosclerosis of artery of both lower extremities I70.203 ; Tinea unguium B35.1 ; Pain in right toe(s) M79.674 and Pain in left toe(s) M79.675 [facility] [address] [address] 04/22/2025 Lilia Mcduffie Assessments Encounter Date Diagnosis [...] Treatment Pending Test Test Name Order Date 08185-SUTZRZS NAIL, 1-5 04/22/2025 68489-SQXX SKIN LESIONS, OVER 4 04/22/20 25 D4366-MNOKPHTQ DYSTROPHIC NAILS ANY # Next Appt Details Provider Name:Lilia Aletajuanita ness, 10/24/2025 10:00:00 AM, [address] [facility], [place], [address], Insurance Providers Payer Name Payer Address Payer Phone Subscriber Number Group Number Insured Name Patient Relationship to Insured Coverage Start Date Coverage End Date [employer] [place] [employer]vant[employer] [address] [place] [address] [id number] Clay Jennings Self - patient is the insured 2 Medical (General) History Medical History History ICD Code Anxiety Cataracts Measles Mumps Chicken pox
[2025-07-10] VITALS (18 sets, daily range): BP systolic 128–213; BP diastolic 32–73; PULSE 76–89; RESP 8–22; TEMP 36.1–36.7; O2SAT 93–97; BMI 32.3
--- NOTE | 2025-07-10 11:00 | W.PM.OPN ---
Operative Note Operative Note Date of Service: 07/10/25 Narrative: Angiogram report from [facility] Preoperative diagnosis: Atherosclerosis of right lower extremity with nonhealing ulcer Postoperative diagnosis: Same Procedure: 1. Ultrasound-guided left common femoral access 2. Aortogram with bilateral lower extremity runoff Surgeon:Tate Azevedo M.D., FACS, RPVI Consulting Sales Manager:None Anesthesia: Local with moderate conscious sedation. Total intraservice moderate sedation time was 30 minutes. I monitored the patient's level of consciousness and physiologic status continuously throughout the procedure. Specimens:none Drains:none Estimated blood loss: Less than 10 ml Radiation Dose: 410.9 mGy Implant: None Indications: 74-year-old gentleman with bilateral nonhealing ulcers presents for endovascular intervention. Bilateral SFA were of concern on noninvasive ultrasound testing. Right was low worse than left. We now presents for endovascular intervention. The patient has signed the informed consent after reviewing risks, complications, benefits, and alternatives previously discussed with the patient. The patient was given the opportunity to ask any additional questions or voice any concerns. All questions were answered to the patient's satisfaction. Procedure in detail: Patient was brought to the angiography suite prior to which a time-out was called for patient identification and site verification. Bilateral groins were prepped and draped in the standard surgical fashion. Under ultrasound guidance left common femoral was punctured with micro puncture needle and wire. Subsequently a precision 5 [place]ian sheath was then placed. Bentson wire was advanced to the level of the aorta. 5 [place]ian Flush catheter was brought up and parked at the level of the renal arteries. Aortogram was then undertaken. Catheter was brought down to the level of the iliac bifurcation. Iliacs and runoff was performed through the flush catheter that was parked at the bifurcation and a power injection was performed to visualize bilateral runoff vessels. Subsequently the catheter was then brought in up and over to the right side SFA. Is total occlusion of the SFA which reconstituted at the above knee popliteal. We did multiple orthogonal views when we parked the catheter into the SFA/profundus. Due to the length of lesion no intervention was indicated. We pulled catheter out through the sheath we did close up views of the left lower extremity as well. Once again no additional intervention was indicated. A 5 [place] Lucian Celt closure device was placed. Patient tolerated the procedure well returned to recovery with stable vitals. Interpretation of films: 1. Ultrasound demonstrates appropriate femoral access site. Vessel was patent with minimal stenosis. Needle entry was visualized. Image of ultrasound was saved. 2. Aortogram demonstrates appropriate caliber aorta. Minimal disease. Appropriate take-off of the renals. 3. Iliac images demonstrate significant tortuosity but no significant disease 4. Right Leg Common femoral artery: No significant disease Profundus Femoris: No significant disease Superficial femoral artery: Total occlusion with reconstitution at the above knee popliteal Popliteal artery (p1,p2,p3): Mild stenosis at the P2/ Anterior tibial artery: Dominant runoff all the way to the foot Peroneal artery: Diminutive but reconstitutes at mid calf and goes down to ankle Posterior tibial artery: Total occlusion Dorsalis pedis/plantar arch: Incomplete 5. Left Leg Common femoral artery: No significant disease Profundus Femoris: No significant disease Superficial femoral artery: Mild to moderate stenosis throughout the entire SFA Popliteal artery (p1,p2,p3): No significant disease Anterior tibial artery: Present Peroneal artery: Present but difficult to visualize Posterior tibial artery: Present but difficult to visualize Dorsalis pedis/plantar arch: Incomplete Conclusion: 1. Successful diagnostic angiogram. Right side will require right above knee femoral to popliteal bypass. Left side will require endovascular intervention in the SFA. 2. Anticoagulation status: No change This note is constructed using voice recognition software. While every effort has been made to ensure accuracy, payroll benefits clerk errors may have been included. Thank you for allowing me to participate in the care of your patient. Yours sincerely, Tate Azevedo MD, FACS, R.P.V.I.
== END 2025-07-10 12:27 | disposition home or self-care (01) ==
PROVIDERS: PCP Student in an Organized Health Care Education/Training Program; Visit Provider Surgery Vascular Surgery
DX: E11.51 Type 2 diabetes mellitus with diabetic peripheral angiopathy without gangrene (principal); I70.238 Atherosclerosis of native arteries of right leg with ulceration of other part of lower leg; M79.89 Other specified soft tissue disorders; R53.1 Weakness; R53.81 Other malaise; R26.9 Unspecified abnormalities of gait and mobility; I10 Essential (primary) hypertension; E78.5 Hyperlipidemia, unspecified; E55.9 Vitamin D deficiency, unspecified; E03.9 Hypothyroidism, unspecified; Z88.5 Allergy status to narcotic agent; Z88.2 Allergy status to sulfonamides
CPT/HCPCS: 36247; 75630; 76937; 99152; 99153; C1760; C1769; C1887; C1894; J1644; J2250; J3010; Q9967

== ENCOUNTER 2025-07-17 07:24 | Day surgery (SDC) | payer MEDICARE, SELFPAY ==
[2025-07-17] VITALS (22 sets, daily range): BP systolic 133–175; BP diastolic 35–79; PULSE 74–84; RESP 11–21; TEMP 36.7–37.1; O2SAT 93–95; BMI 30.8
--- NOTE | 2025-07-17 08:05 | PC.NURSE ---
text lab at 0736am and no lab drawn. recalled at 0752am. still awaiting.
[2025-07-17 08:21] LABS: MANUAL DIFF FLAG NO
[2025-07-17 08:23] LABS: Hematocrit 40.9 % (42.0-52.0); Hemoglobin 13.3 g/dl (14.0-18.0); Imm Gran Abs Auto 0.03 X10*3/uL (0.00-0.03); Imm Gran Pct Auto 0.4 % (0.0-0.4); Lymphocytes Absolute Auto 2.0 X10*3/uL (1.2-4.9); Mean Corpuscular HGB Conc 32.5 g/dl (31.0-36.0); Mean Corpuscular Hemoglobin 28.6 pg (27.0-33.0); Mean Corpuscular Volume 88.0 fL (80.0-98.0); NRBC Abs Auto 0.000 X10*3/uL (0.0-0.012); NRBC Pct Auto 0.0 /100WBC (0.0-0.2); Platelet Count 235 X10*3/uL (160-400); Red Blood Count 4.65 X10*6/uL (4.60-5.80); White Blood Count 7.3 X10*3/uL (4.8-10.8)
[2025-07-17 08:44] LABS: Blood Urea Nitrogen 16 mg/dL (9-16); Creatinine Clr Calc Pharmacy 72.8; Estimated Glomerular Filt Rate > 60
[2025-07-17] MEDS: Heparin Sodium,Porcine 10,000 UNIT/10 ML VIAL 5000 UNIT IVPUSH (09:50)
[2025-07-17] MEDS: Heparin Sodium,Porcine 10,000 UNIT/10 ML VIAL 1000 UNIT IVPUSH (10:04)
--- NOTE | 2025-07-17 12:01 | W.PM.OPN ---
Operative Note Operative Note Date of Service: 07/17/25 Narrative: Operative note by [facility] Angiogram report from [facility] Preoperative diagnosis: Atherosclerosis of left lower extremity with nonhealing ulcer Postoperative diagnosis: Same Procedure: 1. Ultrasound-guided right common femoral access 2. Aortogram with left lower extremity runoff 3. Left SFA atherectomy and plasty Surgeon:Tate Azevedo M.D., FACS, RPVI Securities Clerk:None Anesthesia: Local with moderate conscious sedation. Total intraservice moderate sedation time was 61 minutes. I monitored the patient's level of consciousness and physiologic status continuously throughout the procedure. Specimens:none Drains:none Estimated blood loss: Less than 10 ml Radiation Dose: 289 mGy Implant: [employer] impact DCB 5 x 150 Indications: Pleasant 74-year-old gentleman prior history of nonhealing left lower extremity ulcers. Upon workup and previous angiogram noted to have left SFA disease. He now presents for endovascular intervention The patient has signed the informed consent after reviewing risks, complications, benefits, and alternatives previously discussed with the patient. The patient was given the opportunity to ask any additional questions or voice any concerns. All questions were answered to the patient's satisfaction. Procedure in detail: Patient was brought to the angiography suite prior to which a time-out was called for patient identification and site verification. Bilateral groins were prepped and draped in the standard surgical fashion. Under ultrasound guidance right common femoral was punctured with micro puncture needle and wire. Subsequently a precision 5 [place] sheath was then placed. Bentson wire was advanced to the level of the aorta. 5 [place] Flush catheter was brought up and parked at the level of the renal arteries. Aortogram was then undertaken. Catheter was brought down to the level of the iliac bifurcation. Iliacs and runoff was performed through the flush catheter that was parked at the bifurcation and a power injection was performed to visualize bilateral runoff vessels. Subsequently the catheter was then brought in up and over to the left side SFA. The left SFA demonstrated multiple regions of high-grade stenosis throughout the SFA. At this time we placed an up and over 6 [place] sheath. Prior to this 5000 units of heparin was given an additional 1000 units had to be given to achieve therapeutic ACT. Once this was accomplished we then was able to traverse the lesion with an 035 glidewire advantage we into the popliteal. We followed this with a trail Blazer catheter. Once this was done we then placed a 6 [place] spider wire. Through this we then did a Hawk 1 atherectomy device throughout the left SFA. Multiple unidirectional passes were undertaken. Once this was accomplished completion angiogram did demonstrate some residual stenosis. At this point a 5 x 150 drug coated balloon was placed. This was brought into position in under 3 minutes and insufflated for a total of 3 minutes in duration. Completion angiogram demonstrated excellent result. Patient tolerated the procedure well. Returned to recovery with stable vitals. Interpretation of films: 1. Ultrasound demonstrates appropriate femoral access site. Vessel was patent with minimal stenosis. Needle entry was visualized. Image of ultrasound was saved. 2. Aortogram demonstrates appropriate caliber aorta. Minimal disease. Appropriate take-off of the renals. 3. Iliac images demonstrate no significant disease 4. Left Leg Common femoral artery: No significant disease Profundus Femoris: No significant disease Superficial femoral artery: Moderate stenosis mid to distal SFA Popliteal artery (p1,p2,p3): No significant disease Anterior tibial artery: No significant disease Peroneal artery: No significant disease Posterior tibial artery: Diminutive and occludes at ankle Dorsalis pedis/plantar arch: Present and nearly complete Conclusion: 1. Successful left SFA atherectomy and plasty 2. Anticoagulation status: 6 months of aspirin and Plavix This note is constructed using voice recognition software. While every effort has been made to ensure accuracy, painter and decorator apprentice errors may have been included. Thank you for allowing me to participate in the care of your patient. Yours sincerely, Tate Azevedo MD, FACS, R.P.V.I.
[2025-07-18 10:22] LABS: ACT 211 Celite s (79-173)
[2025-07-18 10:22] LABS: ACT 211 Celite s (79-173)
[2025-07-18 10:22] LABS: ACT 175 Celite s (79-173)
== END 2025-07-17 12:56 | disposition home or self-care (01) ==
PROVIDERS: PCP Student in an Organized Health Care Education/Training Program; Visit Provider Surgery Vascular Surgery
DX: E11.51 Type 2 diabetes mellitus with diabetic peripheral angiopathy without gangrene (principal); I70.202 Unspecified atherosclerosis of native arteries of extremities, left leg; R60.0 Localized edema; R26.2 Difficulty in walking, not elsewhere classified; Z87.2 Personal history of diseases of the skin and subcutaneous tissue; R53.81 Other malaise; E78.5 Hyperlipidemia, unspecified; I10 Essential (primary) hypertension; E55.9 Vitamin D deficiency, unspecified; Z91.148 Patient's other noncompliance with medication regimen for other reason; R26.9 Unspecified abnormalities of gait and mobility; Z79.02 Long term (current) use of antithrombotics/antiplatelets; Z79.899 Other long term (current) drug therapy; Z88.2 Allergy status to sulfonamides; Z88.5 Allergy status to narcotic agent; Z98.890 Other specified postprocedural states
CPT/HCPCS: 36415; 37225; 75630; 76937; 82565; 84520; 85025; 85347; 99152; 99153; C1714; C1760; C1769; C1887; C1894; C2623; J1644; J2250; J3010; Q9967

== ENCOUNTER → 2025-07-17 07:24 | Outpatient (BNV) | payer MEDICARE, SELFPAY | PROVIDERS: PCP Student in an Organized Health Care Education/Training Program; Visit Provider Surgery Vascular Surgery | DX: I70.249 Atherosclerosis of native arteries of left leg with ulceration of unspecified site (principal) | CPT/HCPCS: 37187; 37225; 76937 ==

== ENCOUNTER 2025-07-22 11:13 | Emergency (ER) | payer MEDICARE, SELFPAY ==
[2025-07-22 11:20] VITALS: BP 160/72; PULSE 95; O2SAT 97
[2025-07-22 11:22] VITALS: BP 152/59; PULSE 91; RESP 18; TEMP 36.6; O2SAT 93; BMI 35.2
--- NOTE | 2025-07-22 11:32 | ED.WOUNDLAC ---
HPI - Wound/Laceration General Chief Complaint: Wound/Laceration Stated Complaint: WOUND ON L LEG Time Seen by Provider: 07/22/25 11:22 Source: patient and EMS Mode of arrival: EMS Limitations: no limitations History of Present Illness ED Provider: HPI narrative: 74-year-old male with history of peripheral arterial disease, diabetes, lower extremity wounds bilateral lower extremities, nonhealing ulcer left lower extremity, status post aortogram with left lower extremity runoffs and left SFA atherectomy and plasty by Dr. Azevedo on 07/17/2025, currently on aspirin and Plavix, patient also has military technology manager involved in his care last visit 05/20/2025, and has PCP involved in his care, has AIRPORT UTILITY WORKER that comes to the house to help with shopping and cleaning, no VNA, has noted that the left lower extremity wound has some drainage and was told to come to the ER for evaluation. Patient states he has ointment that he uses to the area provided by military technology manager, she does have a hard time reaching down but he is able to do his best to reach down to clean his lower extremities, was told not to put any dressings to the area as not to keep it moist and prevent infection. Has no wound care follow up. Otherwise no new trauma, and a worsening pain no fevers or chills. Related Data Home Medications ?Medication ?Instructions ?Recorded ?Confirmed multivitamin 1 tab PO DAILY 06/20/25 07/17/25 Previous Rx's ?Medication ?Instructions ?Recorded cholecalciferol (vitamin D3) 1,250 1,250 mcg PO QWEEK 12 weeks #12 05/03/25 mcg (50,000 unit) capsule caps aspirin 81 mg tablet 81 mg PO DAILY #90 tabs 06/13/25 atorvastatin 40 mg tablet (Lipitor) 40 mg PO BEDTIME 90 days #90 tabs 06/20/25 levothyroxine 50 mcg tablet 50 mcg PO DAILY #30 tabs 06/20/25 (Synthroid) gabapentin 100 mg capsule 100 mg PO DAILY #30 caps 07/05/25 amlodipine 10 mg tablet 10 mg PO DAILY #30 tabs 07/17/25 clopidogrel 75 mg tablet (Plavix) 75 mg PO DAILY #90 tabs 07/17/25 vitamin E-vitamins A and D topical 1 appl topical TID #114 grams 07/22/25 cream Allergies Allergy/AdvReac Type Severity Reaction Status Date / Time Sulfa (Sulfonamide Allergy Unknown RED RASH Verified 07/22/25 11:25 Antibiotics) (SULFA (SULFONAMIDE ANTIBIOTICS)) codeine (CODEINE) AdvReac Intermediate VERY TIRED Verified 07/22/25 11:25 AND EXTREME MUSCLE WEAKNESS codeine Allergy Unknown Rash Uncoded 07/22/25 11:25 Review of Systems Constitutional: Constitutional: Reports as per [facility] Past Medical History Medical History PAD (peripheral artery disease) Vertigo Legally blind Peripheral artery disease Diabetes Vitamin D deficiency Hyperlipidemia Hypothyroidism Hand weakness Gait disturbance Shoulder weakness Lower extremity weakness Hypertension Debility, unspecified Wound of lower extremity Healthcare maintenance Surgical History History of eye surgery H/O bilateral cataract extraction Hx of foot surgery Family History Family History Mother Cervical cancer Hx of total thyroidectomy Thyroid disease Hyperthyroidism Father CHF (congestive heart failure) Heart attack Social History Social History Housing: House Patient Tobacco Use Status: Never used Tobacco e-Cigarette/Vaping Use: Never Used Advance Directives: No Advance Directives Information Provided: Yes Do you have a plan to hurt others: No Plan service: No Current occupational status: disabled Physical Exam Exam: Exam: ?General: ??looks age appropriate, ?CV: S1-S2 ?Resp: ?No wheezing rales rhonchi no stridor moving air well Abd: ?Bowel sounds are present, no tenderness no rebound no rigidity MSK: Able to lift his upper and lower extremities symmetrically, Skin: Dopplerable distal pulses bilaterally, chronic skin changes consistent with peripheral arterial disease both sides with eschars and peeling skin on the right side of the left side similar on the lateral aspect of his distal 3rd tibia there is an area of sloughed skin with dried drainage without purulence, without necrotic areas ?Neuro: ?Alert and oriented x3, moving upper and lower extremities symmetrically, no obvious facial asymmetry noted, cranial nerves 2-12 intact Vital Signs: Vital Signs: Last Vital Signs Temp 98 F 07/22/25 11:22 Pulse 91 07/22/25 11:22 Resp 18 07/22/25 11:22 BP 152/59 H 07/22/25 11:22 Pulse Ox 93 07/22/25 11:22 O2 Del Method Room Air 07/22/25 11:22 BMI result Body Mass Index 35.2 Medical Decision Making Medical Decision Making MDM Narrative: 11:38 AM 07/22/2025 (Dr. Michael Chavarria): Patient just had a procedure done for his peripheral arterial disease and has fairly significant chronic skin changes to bilateral lower extremities worse on the left side, the ulceration that he has is superficial, the skin sloughed off and there was some drainage that is nonpurulent, no smell to it, no necrosis, I am going to provide him with the number to call for wound care, and he has not ointment that he uses from Podiatry but I will recommend petroleum based ointment with some antibiotic coverage likely, but there was no indication for oral antibiotics, both podiatry and vascular surgeons can manage his wound as well but I think the best thing would be to have patient follow up in Wound Care Clinic. There was no indication for any blood work or imaging such as x-rays at this time there was no evidence for deep space infection or for DVT or ischemic leg 12:30 PM 07/22/2025 (Dr. Michael Chavarria): I spoke to patient's brother who came to the ER and he requested VNA until wound care can be set up, he states he has been trying to get his PCP to establish that but has had a hard time with that I will refer see my wound care instructions Differential Diagnosis Differential Diagnoses: The differential diagnosis associated with the presentation includes (Cellulitis, abscess, peripheral arterial disease, peripheral vascular disease, compartment syndrome) Admission/Observation Consideration of admission/observation: Escalation of care including admission/observation considered External Record Review External record reviewed: Office record Tests considered The following testing was considered but not selected: Ultrasound left lower extremity CBC, chemistry, CRP Prescription Management I considered prescription management with: Antibiotic Chronic Conditions Patient?s care impacted by: Diabetes and Other (Peripheral arterial disease) Social Determinants Patient?s care significantly limited by Social Determinants of Health including: Problems related to primary support group Discharge Plan Discharge Clinical Impression: Wound of lower extremity, Peripheral artery disease Additional Instructions: You have a fairly complex arterial disease and I am hoping that is some of the chronic skin issues we will start resolving not that you had this vascular procedure done with Dr. Azevedo, the arterial lesions that you experience they do not commonly get infected, they can drain and they lacks some moisture though I do not recommend just covering with occlusive dressings, instead some type of skin barrier can be used, due to the nature of insurance companies and the cost I am going to prescribe vitamin E a and D cream to you to use at this time, but there are better creams in the market and I would defer to Wound Care Specialists for creams or specific dressings that can be used to cover arterial wounds For now the wound care instructions are: VNA services with wound care every other day area can be cleaned with diluted Betadine and water gently, pat dry and then apply either the ointment you have from military technology manager at home or the ointment I am prescribing for you. Then apply nonadhering dressing and gauze. Continue this until wound care can take over Continue to follow up with the military technology manager and Dr. Azevedo. Prescriptions: New vitamin E-vitamins A and D Cream 1 appl topical TID Qty: 114 0RF No Action aspirin 81 mg tablet 81 mg PO DAILY Qty: 90 0RF atorvastatin [Lipitor] 40 mg tablet 40 mg PO BEDTIME 90 Days Qty: 90 3RF levothyroxine [Synthroid] 50 mcg tablet 50 mcg PO DAILY Qty: 30 0RF gabapentin 100 mg capsule 100 mg PO DAILY Qty: 30 0RF amlodipine 10 mg tablet 10 mg PO DAILY Qty: 30 0RF clopidogrel [Plavix] 75 mg tablet 75 mg PO DAILY Qty: 90 1RF multivitamin Tablet 1 tab PO DAILY Rx Instructions: Brand Centrum cholecalciferol (vitamin D3) 1,250 mcg (50,000 unit) capsule 1,250 mcg PO QWEEK 84 Days Qty: 12 0RF Referrals: [facility] [Provider Group, Wound Care] - 1 week Referral Note: Patient can benefit from wound care for left lower extremity wound associated with peripheral arterial disease just had a procedure done with Dr. Azevedo I am hoping that now that this procedure was done his course will improve but he will need wound care for now Clinical Impression: Wound of lower extremity Print Language: Italian
--- NOTE | 2025-07-22 13:34 | MHC.CM.ED ---
PER DISCUSSION WITH MD, PLAN IS HOME WITH [facility] SERVICES FOR WOUND CARE. [facility] DOES NOT ACCEPT PATIENT'S INSURANCE. [facility] IS VERIFYING PCP (DR MEDINA) PLAN IS FOR SON TO TAKE PATIENT HOME AND AWAIT [facility] SERVICES.
[2025-07-22 13:40] VITALS: BP 152/59; PULSE 91; RESP 18; TEMP 36.6; O2SAT 93
--- NOTE | 2025-07-22 13:42 | MHC.CM.PN ---
PATIENT STATES THAT HE WANTS TO GO HOME AND GET SOME BELONGINGS PRIOR TO SNF. PATIENT MADE AWARE HTAT THERE IS NO BED OFFER YET, AND THE PROCESS FOR TRANSFER IS FROM [facility] AND NOT HOME. HE IS CHOOSING TO GO HOME TODAY AND IF NEEDED, HE WILL RETURN AT SOME TIME IN THE NEAR FUTURE FOR ANOTHER ASSESSMENT OF CARE NEEDS. RN AWARE VIA [employer]
== END 2025-07-22 13:41 | disposition home or self-care (01) ==
PROVIDERS: Emergency Provider Emergency Medicine
DX: L97.829 Non-pressure chronic ulcer of other part of left lower leg with unspecified severity (principal); E11.622 Type 2 diabetes mellitus with other skin ulcer; E11.51 Type 2 diabetes mellitus with diabetic peripheral angiopathy without gangrene; I10 Essential (primary) hypertension; Z98.890 Other specified postprocedural states; H54.8 Legal blindness, as defined in USA; Z79.899 Other long term (current) drug therapy
CPT/HCPCS: 99282; 99283

== ENCOUNTER 2025-07-31 08:42 | Outpatient (REF) | payer MEDICARE, SELFPAY ==
[2025-07-31 12:46] LABS: Free T4 (Free Thyroxine) 0.78 ng/dL (0.71-1.85)
== END 2025-07-31 08:43 | disposition home or self-care (01) ==
LOC: HO.LAB 08:42
PROVIDERS: Absent Provider Student in an Organized Health Care Education/Training Program; PCP Student in an Organized Health Care Education/Training Program; Visit Provider Surgery Vascular Surgery
DX: I89.0 Lymphedema, not elsewhere classified (principal); I73.9 Peripheral vascular disease, unspecified; S81.801D Unspecified open wound, right lower leg, subsequent encounter; Z01.84 Encounter for antibody response examination; E03.9 Hypothyroidism, unspecified; X58.XXXD Exposure to other specified factors, subsequent encounter
CPT/HCPCS: 36415; 84439; 84443; 86376; 99212

== ENCOUNTER 2025-07-31 08:42 | Outpatient (AMB) | payer MEDICARE, SELFPAY ==
--- OUTSIDE RECORDS SUMMARY | 2025-05-24 04:30 | XMS_ITS ---
Author Organization [facility] Address [address] [place] [address] Care Team Providers Care Production Inspector Name Role Phone Holland Warner Primary Care Provider Lilia Schilling Unavailable [phone] Rajendra Lal Unavailable [phone] Allergies Allergen (clinical drug ingredient) Drug/Non Drug [...] Negative Encounters Encounter Location Date Provider Diagnosis [facility] [address] [place] [address] 05/24/2025 Rajendra Lal Plan Of Treatment Next Appt Details Provider Name:Lilia arzola, 10/24/2025 10:00:00 AM, [address] [place], [address], Progress Notes * Lauren POWER:[birth year] (74 yo M)Acc No.[id number]:05/24/2025 Progress Notes Patient: Clay SHERIFF Provider: Swathi Lal DPM :1950 A ge:74 Y S ex:Male Date:05/24/2025 Address:[address] [place] [address], [place], [id number] Pcp:Holland Warner Subjective: * Chief Complaints: * [...] enies. C ardiovascular: Pacemaker d enies. M TECHNOLOGY PROJECT MANAGER d enies. W PW d enies. [...] Pending * Provider: Swathi Lal DPM Date: 1 Generated for Amanda Perkins on: 10/01/2024 09:06 AM EST
--- NOTE | 2025-07-16 10:46 | MHC.OFFVIS ---
Intake Visit Reasons: 2 week follow up s/p L leg angio 07/17/25 Allergies Sulfa (Sulfonamide Antibiotics) (SULFA (SULFONAMIDE ANTIBIOTICS)) Allergy (Unknown, Verified 07/16/25 10:51) RED RASH codeine (CODEINE) Adverse Reaction (Intermediate, Verified 07/16/25 10:51) VERY TIRED AND EXTREME MUSCLE WEAKNESS codeine Allergy (Unknown, Uncoded 07/16/25 10:51) Rash HPI HPI 2 week follow up s/p L leg angio 07/17/25: Details: Patient originally underwent right leg angiogram. Totally occluded will require fem-pop bypass. He is undergoing procedure tomorrow and this is strictly for documentation purposes only. He will require left leg angiogram as it does have mild to moderate disease in this needs to be treated prior to his surgical intervention on the right lower extremity. Postprocedure this was discussed with him. [facility] Medical History (Updated 07/16/25 @ 10:41 by Tate Azevedo MD) PAD (peripheral artery disease) Vertigo Legally blind Peripheral artery disease Diabetes Vitamin D deficiency Hyperlipidemia Hypothyroidism Hand weakness Gait disturbance Shoulder weakness Lower extremity weakness Hypertension Debility, unspecified Wound of lower extremity Healthcare maintenance Surgical History (Updated 07/10/25 @ 07:55 by Lucina Grijalva RN) History of eye surgery H/O bilateral cataract extraction Hx of foot surgery Family History Mother Cervical cancer Hx of total thyroidectomy Thyroid disease Hyperthyroidism Father CHF (congestive heart failure) Heart attack Social History Housing: House Patient Tobacco Use Status: Never used Tobacco e-Cigarette/Vaping Use: Never Used service: No Current occupational status: disabled Review of Systems Const All systems reviewed & are unremarkable except as noted in HPI and below Reports no additional complaints ENT Reports Normal hearing present Card Denies chest pain, Denies chest pain at rest, Denies chest pain with activity and Denies pedal edema Resp Denies cough GI Denies abdominal pain Musc Denies abnormal gait, Denies muscle cramps and Denies radiating pain into limb Skin/Breast Denies skin ulcer and Denies wounds Neuro Reports Normal hearing present and Denies abnormal gait Psych Reports no additional complaints Physical Exam Const General: cooperative, healthy appearing and comfortable Orientation/consciousness: oriented to person, oriented to place and oriented to time HEENT Head: Yes normal to inspection Neck Neck: Yes normal visual inspection Carotids: no bruits Chest Chest palpation & inspection: normal inspection of the chest Resp Effort & Inspection: normal respiratory effort and able to speak in complete sentences Auscultation: clear to auscultation bilaterally, no crackles, no rales, no rhonchi and no wheezes Cardio Other: Bilateral DP signals as noted postprocedure. Rate: regular rate Rhythm: regular rhythm Heart sounds: S1 normal heart sound present and S2 normal heart sound present Bruits: no carotid bruits Peripheral pulses: Peripheral pulses 2+ throughout GI Inspection: Yes normal to inspection Skin Wounds: no wounds Hair: normal Neuro General: oriented to person, oriented to place and oriented to time Cranial nerves: Yes CN's II-XII intact bilaterally and Yes Normal hearing present Cognition (Neuro): normal cognition Motor exam (neuro): 5/5 motor strength present throughout Extrem Other: venous exam: No significant superficial varicosities or spider telangiectasias, minimal edema General: No clubbing, No cyanosis and No edema Psych Appearance: grossly normal Mental Status: mental status grossly normal Speech and movement: Normal speech and movement present Coding
[2025-07-31 08:50] VITALS: BMI 35.2
--- NOTE | 2025-07-31 08:50 | MHC.OFFVIS ---
Vital Signs 07/31/25 08:50 Height 5 ft 4 in Weight 205 lb BMI 35.2 Intake Visit Reasons: 2 week follow up s/p L leg angio 07/17/25 Intake Note: 2 week follow up Left LE Angio 07/17/25 & Right LE Angio 07/10/25. Bilateral non-healing ulcers. Has VNA 3 x a week. [employer] Required: No Accompanied by: Brother Allergies Sulfa (Sulfonamide Antibiotics) (SULFA (SULFONAMIDE ANTIBIOTICS)) Allergy (Unknown, Verified 07/31/25 09:00) RED RASH codeine (CODEINE) Adverse Reaction (Intermediate, Verified 07/31/25 09:00) VERY TIRED AND EXTREME MUSCLE WEAKNESS codeine Allergy (Unknown, Uncoded 07/31/25 09:00) Rash HPI HPI 2 week follow up s/p L leg angio 07/17/25: Details: The patient is a 74 year old male presenting for follow-up for his peripheral artery disease. He underwent a diagnostic angiogram on 07/10/2025 and subsequently had a left superficial femoral artery (SFA) atherectomy and angioplasty on 07/17/2025. The intervention on the left leg successfully opened a blockage with ballooning and has resulted in decent blood flow. The right leg was found to have a solid blockage which could not be crossed during the angiogram. He has associated issues with redness and infection in his legs, and also suffers from lymphedema-like swelling. Wound care is currently being provided by visiting nurses three times a week, but this consists of dressing changes only. The patient recently had an issue with a leaking wound, for which he was taken to the emergency room, but was told this was a normal post-procedural finding and he was discharged. He reports some sharp pain in the ankle which resolves with medication. His mobility is limited, and he uses a walker, though his primary care physician has recommended he stop using it to strengthen his legs. His past medical history is also notable for hypertension. [facility] Medical History PAD (peripheral artery disease) Vertigo Legally blind Peripheral artery disease Diabetes Vitamin D deficiency Hyperlipidemia Hypothyroidism Hand weakness Gait disturbance Shoulder weakness Lower extremity weakness Hypertension Debility, unspecified Wound of lower extremity Healthcare maintenance Surgical History History of eye surgery H/O bilateral cataract extraction Hx of foot surgery Family History Mother Cervical cancer Hx of total thyroidectomy Thyroid disease Hyperthyroidism Father CHF (congestive heart failure) Heart attack Social History Housing: House Patient Tobacco Use Status: Never used Tobacco e-Cigarette/Vaping Use: Never Used service: No Current occupational status: disabled Review of Systems Const All systems reviewed & are unremarkable except as noted in HPI and below Reports no additional complaints ENT Reports Normal hearing present Card Denies chest pain, Denies chest pain at rest, Denies chest pain with activity and Denies pedal edema Resp Denies cough GI Denies abdominal pain Musc Denies abnormal gait, Denies muscle cramps and Denies radiating pain into limb Skin/Breast Denies skin ulcer and Denies wounds Neuro Reports Normal hearing present and Denies abnormal gait Psych Reports no additional complaints Physical Exam Vital Signs: BMI result Body Mass Index 35.2 Const General: cooperative, healthy appearing and comfortable Orientation/consciousness: oriented to person, oriented to place and oriented to time HEENT Head: Yes normal to inspection Neck Neck: Yes normal visual inspection Carotids: no bruits Chest Chest palpation & inspection: normal inspection of the chest Resp Effort & Inspection: normal respiratory effort and able to speak in complete sentences Auscultation: clear to auscultation bilaterally, no crackles, no rales, no rhonchi and no wheezes Cardio Other: Bilateral DP signals Rate: regular rate Rhythm: regular rhythm Heart sounds: S1 normal heart sound present and S2 normal heart sound present Bruits: no carotid bruits GI Inspection: Yes normal to inspection Skin Wounds: no wounds Hair: normal Neuro General: oriented to person, oriented to place and oriented to time Cranial nerves: Yes CN's II-XII intact bilaterally and Yes Normal hearing present Cognition (Neuro): normal cognition Motor exam (neuro): 5/5 motor strength present throughout Extrem Other: venous exam: No significant superficial varicosities or spider telangiectasias, minimal edema General: No clubbing, No cyanosis and No edema Psych Appearance: grossly normal Mental Status: mental status grossly normal Speech and movement: Normal speech and movement present Assessment & Plan Assessment & Plan (1) PAD (peripheral artery disease): Comment: 07/10/2025 - diagnostic angiogram 07/17/2025 - left SFA atherectomy and plasty Code(s): I73.9 - Peripheral vascular disease, unspecified Category: Medical Plan: In short patient is doing well status post left lower extremity endovascular intervention. He does continue to have nonhealing ulcers.. I did review the pathophysiology of peripheral vascular disease with the patient. In addition we did discuss routine conservative measures including a healthy diet and the importance of exercise and ambulation. We did discuss risk factor modification. He will be scheduled for three-month arterial surveillance follow-up. Would like his legs to improve prior to us even considering anything for the right lower extremity. (2) Wound of lower extremity: Comment: - Continue current wound care with topical ointment and dressings. - Evaluate for any signs of infection or compromised healing during follow-ups - On exam wound appears clean, without any drainiage and scabbing over wound Code(s): S81.809A - Unspecified open wound, unspecified lower leg, initial encounter Category: Medical Qualifiers: Encounter type: subsequent encounter Laterality: right Qualified Code(s): S81.801D - Unspecified open wound, right lower leg, subsequent encounter Plan: Will refer to Wound [facility] (3) Lymphedema: Code(s): I89.0 - Lymphedema, not elsewhere classified Category: Medical Plan: In short the patient has late on sent lymphedema. He has nonhealing ulcers. The patient has tried conservative measures including compression garments and local wound care with continued nonhealing ulcers. In addition on physical we are noticing hyperpigmentation, lymphorrhea, hyperplasia and nonhealing ulcers. It appears that she has stage 3 lymphedema. Patient has completed multiple forms of conservative therapy yet significant symptoms remain. The patient may benefit from active dynamic compression system. We will try to obtain these for him. Thank you for allowing us to assist in his care. Orders: Orders US arterial duplex LE BI 3 Months I73.9 - Peripheral vascular disease, unspecified Coding Level of Care Code Est Pt Level 4 (06451) Diagnoses PAD (peripheral artery disease) I73.9 Wound of right lower extremity, subsequent encounter S81.801D Encounter type: subsequent encounter Laterality: right Lymphedema I89.0
--- OUTSIDE RECORDS SUMMARY | 2025-07-31 09:07 | XMS_ITS | Patient Health Record ---
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 Role Phone Holland Warner Primary Care Provider Lilia Schilling Unavailable [phone] Rajendra Lal Unavailable [phone] Allergies Allergen (clinical drug ingredient) Drug/Non Drug [...] Problem Acquired hammer toe of right foot (0210477000013911) Other hammer toe(s) (acquired), right foot (M20.41) Active confirmed Problem Acquired hammer toe of left foot (9089134549227576) Other hammer toe(s) (acquired), left foot (M20.42) Active confirmed Problem Bilateral atherosclerosis of arteries of lower limbs (disorder) (88008090055551796 ) Atherosclerosis of artery of both lower extremities (I70.203) Active confirmed Q7(A), Q8(2B), Q9(1B,2 C) Vital Signs Blood pressure diastolic 81 mm Hg 04/22/2025 Height 5ft 4in in 04/22/2025 Blood pressure systolic 191 mm Hg 04/22/2025 Weight 194 lbs 04/22/2025 BMI 33.3 kg/m2 04/22/2025 Procedures Procedure Date Ordered Date Performed Result Body Sit e 17774-ESMAEET NAIL, 1-5 04/22/2025 N/A 43555-TYBF SKIN LESIONS, OVER 4 04/22/2025 N/A X4029-OCGSFORC DYSTROPHIC NAILS ANY # 04/22/2025 N/A Encounters Encounter Location Date Provider Diagnosis [facility] [address] [address] 04/22/2025 Lilia Mcduffie Other hammer toe(s) (acquired), right foot M20.41 ; Other hammer toe(s) (acquired), left foot M20.42 ; Atherosclerosis of artery of both lower extremities I70.203 ; Tinea unguium B35.1 ; Pain in right toe(s) M79.674 and Pain in left toe(s) M79.675 [facility] [address] [address] 04/22/2025 Lilia Mcduffie Assessments Encounter Date Diagnosis [...] Treatment Pending Test Test Name Order Date 21133-EYTVMVT NAIL, 1-5 04/22/2025 86179-PHWO SKIN LESIONS, OVER 4 04/22/20 25 H1343-KATSYOZX DYSTROPHIC NAILS ANY # Next Appt Details Provider Name:Lilia Aletajuanita ness, 10/24/2025 10:00:00 AM, [address] [facility], [place], [address], Insurance Providers Payer Name Payer Address Payer Phone Subscriber Number Group Number Insured Name Patient Relationship to Insured Coverage Start Date Coverage End Date [employer] [place] [employer] [address] [place] [address] [id number] Clay Jennings Self - patient is the insured 2 Medical (General) History Medical History History ICD Code Anxiety Cataracts Measles Mumps Chicken pox
== END 2025-07-31 09:29 | disposition home or self-care (01) ==
LOC: HO.HVS 08:42
PROVIDERS: PCP Student in an Organized Health Care Education/Training Program; Visit Provider Surgery Vascular Surgery
DX: I73.9 Peripheral vascular disease, unspecified (principal); S81.801D Unspecified open wound, right lower leg, subsequent encounter; I89.0 Lymphedema, not elsewhere classified
CPT/HCPCS: 99214